=== PATIENT | female | born 1960 | race African-American/Black ===

== ENCOUNTER 2017-11-07 09:25 | Inpatient (IN) | payer OTHER ==
[2017-11-07] MEDS ORDERED: ONDANSETRON 4 MG/2 ML VIAL IVPUSH ONE (10:33)
--- NOTE | 2017-11-07 11:18 | PDOC ---
History of Present Illness <Lamont Del Toro - Last Filed: 11/07/17 16:46> - General History Source: Patient, Spouse Exam Limitations: No Limitations - History of Present Illness Initial Comments: 11/07/17 11:22 The patient is a 57 year old female with a significant PMH of hypertension and end stage renal disease (dialysis on Monday, , or Monday) who presents to the emergency department with headache, fatigue, and 1-2 episodes of emesis during dialysis. The is at bedside and providing most of the history. The notes the patient experiences headaches and fatigue after dialysis for the past three months that resolve on its own about 6 hours later. The patient reports the headaches are severe, throbbing, and localized at the frontal area. The notes the 1-2 episodes of non bloody, non bilious vomit during dialysis today has not occurred before prompting their visit to the ER today. The states the patient was in her normal state of health this morning. At baseline, the patient reports she is constipated for 4-5 days. The reports the patient has been going to [facility] for dialysis for the past 5 years and states the left AV fistula was changed over a year ago. The patient denies LOC, chest pain, shortness of breath, and dizziness. Denies fever, chills, and diarrhea. Denies dysuria, frequency, urgency and hematuria. Allergies: NKA Past surgical history: None reported. Social history: No reported alcohol, drug, or cigarette use. PCP: Dr. Carbajal <Ros Perez - Last Filed: 11/07/17 17:03> - General Chief Complaint: Nausea/Vomiting Stated Complaint: BLOOD PRESSURE ISSUE Time Seen by Provider: 11/07/17 09:51 Past History - Past Medical History COPD: No Dialysis: Yes (,,) HTN: Yes - Suicide/Smoking/Psychosocial Hx Smoking History: Never smoked Have you smoked in the past 12 months: No Information on smoking cessation initiated: No Hx Alcohol Use: No Drug/Substance Use Hx: No Substance Use Type: None Hx Substance Use Treatment: No <Lamont Del Toro - Last Filed: 11/07/17 16:46> <Ros Perez - Last Filed: 11/07/17 17:03> - Past Medical History Allergies/Adverse Reactions: Allergies Allergy/AdvReac Type Severity Reaction Status Date / Time No Known Allergies Allergy Unverified 11/07/17 09:50 Home Medications: Ambulatory Orders Acetaminophen [Pain Relief] 650 mg PO PRN 11/07/17 Clonidine HCl 0.1 mg PO PRN 11/07/17 Nitroglycerin 0.4 mg SL PRN 11/07/17 Review of Systems - Review of Systems Constitutional: No: Chills, Fever HEENTM: No: Recent change in vision Respiratory: No: Cough, Shortness of Breath Cardiac (ROS): Yes: Syncope. No: Chest Pain, Edema ABD/GI: Yes: Nausea. No: Diarrhea, Vomiting Musculoskeletal: No: Muscle Pain Neurological: Yes: Headache. No: Tingling, Weakness All Other Systems: Reviewed and Negative <Lamont Del Toro - Last Filed: 11/07/17 16:46> *Physical Exam - Vital Signs Last Vital Signs Temp Pulse Resp BP Pulse Ox 97.2 F L 65 18 162/75 100 11/07/17 09:25 11/07/17 09:25 11/07/17 09:25 11/07/17 09:25 11/07/17 09:25 <Lamont Del Toro - Last Filed: 11/07/17 16:46> - Vital Signs Last Vital Signs Temp Pulse Resp BP Pulse Ox 97.2 F L 65 18 162/75 100 11/07/17 09:25 11/07/17 09:25 11/07/17 09:25 11/07/17 09:25 11/07/17 09:25 - Physical Exam Comments: 11/07/17 11:24 GENERAL: (+) Fatigued but arousable to answer question. The patient is awake, alert, in no acute distress. HEAD: Normal with no signs of trauma. EYES: Pupils equal, round and reactive to light, extraocular movements intact, sclera anicteric, conjunctiva clear with no pallor. ENT: Ears normal, nares patent, oropharynx clear without exudates. Moist mucous membranes. NECK: Normal range of motion, supple without lymphadenopathy, JVD, or masses. LUNGS: Breath sounds equal, clear to auscultation bilaterally. No wheeze/ crackles. HEART: Regular rate and rhythm, normal S1 and S2 without murmur or rub. ABDOMEN: Soft/nontender/nondistended. BS wnl. No guarding or rebound. No palpable masses. No hepatosplenomegaly. EXTREMITIES: (+) Left AV fistula, palpable thrill. Normal range of motion, no edema. No clubbing or cyanosis. No cords, erythema, or tenderness. NEUROLOGICAL: Cranial nerves II through XII grossly intact. Normal speech, normal gait. PSYCH: Normal mood, normal affect. SKIN: Warm, Dry, normal turgor, no rashes or lesions noted. <Ros Perez - Last Filed: 11/07/17 17:03> Heart Score/ECG Review #1 ECG reviewed & interpreted by me at: 09:49 General ECG Interpretation: Sinus Rhythm, Normal Rate (60), Normal Intervals ( QTC 416), No acute ischemic changes <Lamont Del Toro - Last Filed: 11/07/17 16:46> ED Treatment Course - LABORATORY CBC & Chemistry Diagram: 11/07/17 10:34 11/07/17 10:34 - RADIOLOGY Radiology Studies Ordered: Category Date Time Status HEAD CT (STROKE) [CT] Stat CT Scan 11/07/17 11:11 Ordered CHEST X-RAY PORTABLE* [RAD] Stat Radiology 11/07/17 10:32 Completed <Lamont Del Toro - Last Filed: 11/07/17 16:46> - LABORATORY CBC & Chemistry Diagram: 11/07/17 10:34 11/07/17 10:34 <Ros Perez - Last Filed: 11/07/17 17:03> Medical Decision Making - Medical Decision Making 11/07/17 11:15 A portion of this note was documented by scribe services under my direction. I have reviewed the details of the note, within reason, and agree with the documentation with the following case summary and management plan written by me. 57-year-old female with history of hypertension and end-stage renal disease on Monday//Monday dialysis presents from her routine dialysis with episode of hypotension/near syncope/nausea. Currently without complaints, but somnolent and slightly confused. states this has been typical for patient's post dialysis status for the last few months, but has always been able to complete dialysis and her symptoms would typically resolve spontaneously. No recent infectious complaints or cardiac coronary complaints, she has no pain. Blood pressure here has normalized, O2 sat is normal, she is afebrile. Somnolent but arousable, answers questions appropriately and is following commands but slightly disoriented, A+O 2 no focal deficit, 5/5 x4 extremities, FNF intact 57-year-old female with episode of near syncope/altered mental status while at dialysis. Differential is broad, question electrolyte abnormality versus infectious process versus arrhythmia. Blood pressure has normalized here. Labs EKG, chest x-ray, CT head Continue monitoring, dispo accordingly 11/07/17 12:58 Labs are within normal limits, no leukocytosis. Electrolytes are within normal limits, baseline elevated creatinine, normal troponin. Chest x-ray without acute pathology, CT head pending. 11/07/17 14:24 CT shows large right-sided meningioma with significant mass effect, midline shift, and likely elevated intracranial pressure. Likely the underlying cause of the patient's subacute presentations of confusion/altered mental status, now with persistent symptoms. Discussed with Dr. Salazar of neurosurgery, who will see the patient. Proceed with admisison. Dr. Paredes on service and called. <Lamont Del Toro - Last Filed: 11/07/17 16:46> - Medical Decision Making 11/07/17 17:[address] out [address] to Dr. Paredes. Dr. Stauffer (neurosurgeon) is aware and will be following up in inpatient med surg. <Ros Perez - Last Filed: 11/07/17 17:03> *DC/Admit/Observation/Transfer - Discharge Dispostion Admit: Yes <Lamont Del Toro - Last Filed: 11/07/17 16:46> - Attestations Scribe Attestion: 11/07/17 11:23 Documentation prepared by Ros Perez, acting as medical equipment technician for Lamont Del Toro MD. <Ros Perez - Last Filed: 11/07/17 17:03> Diagnosis at time of Disposition: Near syncope, ESRD (end stage renal disease) on dialysis, Meningioma - Discharge Dispostion Condition at time of disposition: Fair - Referrals Referrals: Anna Carbajal [Primary Care Provider] - - Patient Instructions - Post Discharge Activity
[2017-11-07 11:47] LABS: ALBUMIN 3.7 g/dl (3.4-5.0); ANION GAP 11 (8-16); BILIRUBIN,TOTAL 0.4 mg/dL (0.2-1.0); BLOOD UREA NITROGEN 41 mg/dL (7-18); CALCIUM 8.9 mg/dL (8.5-10.1); CHLORIDE 103 mmol/L (98-107); CO2 21 mmol/L (21-32); GLUCOSE,RANDOM 119 mg/dL (74-106); SGPT/ALT 66 U/L (12-78); SODIUM 135 mmol/L (136-145); TOT PROT 7.8 g/dl (6.4-8.2)
[2017-11-07 11:51] LABS: BASO % 0.2 % (0-2.0); EOS % 1.1 % (0-4.5); HEMATOCRIT 36.7 % (32.4-45.2); HEMOGLOBIN 11.9 GM/dL (10.7-15.3); LYMPH % 13.1 % (8-40); MCH 31.5 pg (25.7-33.7); MCHC 32.5 g/dl (32.0-36.0); MEAN CELL VOLUME 96.9 fl (80-96); MEAN PLT VOLUME 8.7 fl (7.5-11.1); MONO % 3.3 % (3.8-10.2); NEUT % 82.3 % (42.8-82.8); PLATELET COUNT 133 K/MM3 (134-434); RBC 3.78 M/mm3 (3.60-5.2); RDW 13.7 % (11.6-15.6); WHITE BLOOD COUNT 6.8 K/mm3 (4.0-10.0)
[2017-11-07 11:52] LABS: ALK PHOS 243 U/L (45-117)
[2017-11-07 11:58] LABS: POTASSIUM 4.7 mmol/L (3.5-5.1)
[2017-11-07 11:59] LABS: CREATININE 8.5 mg/dL (0.55-1.02); MAGNESIUM 2.4 mg/dL (1.8-2.4); SGOT/AST 70 U/L (15-37)
[2017-11-07 12:05] LABS: INR 0.98 (0.82-1.09); PROTHROMBIN TIME (PATIENT) 11.1 SEC (9.98-11.88)
--- NOTE | 2017-11-07 17:02 | EKG ---
Test Reason : Blood Pressure : / mmHG Vent. Rate : 060 BPM Atrial Rate : 084 BPM P-R Int : 000 ms QRS Dur : 078 ms QT Int : 416 ms P-R-T Axes : 000 -08 011 degrees QTc Int : 416 ms POOR DATA QUALITY, INTERPRETATION MAY BE ADVERSELY AFFECTED SINUS RHYTHM WITH A-V DISSOCIATION AND JUNCTIONAL RHYTHM ABNORMAL ECG WHEN COMPARED WITH ECG OF 28-JUN-2014 15:57, JUNCTIONAL RHYTHM HAS REPLACED SINUS RHYTHM Confirmed by MD Fadi, Reji ([id number]) on 11/07/2017 5:02:27 PM Referred By: Confirmed By:Reji Aponte MD
[2017-11-07] MEDS ORDERED: ACETAMINOPHEN 325 MG TABLET (FP) PO PRN (19:27)
--- NOTE | 2017-11-07 20:58 | HP ---
Admitting History and Physical - Admission History of Present Illness: 57 year old female with a significant PMH of hypertension and end stage renal disease (dialysis on Monday, , or Monday) who presents to the emergency department with headache, fatigue, and 1-2 episodes of emesis during dialysis. The is at bedside and providing most of the history. The notes the patient experiences headaches and fatigue after dialysis for the past three months that resolve on its own about 6 hours later. The patient reports the headaches are severe, throbbing, and localized at the frontal area. The notes the 1-2 episodes of non bloody, non bilious vomit during dialysis today has not occurred before prompting their visit to the ER today. The states the patient was in her normal state of health this morning. At baseline, the patient reports she is constipated for 4-5 days. The reports the patient has been going to [facility] for dialysis for the past 5 years and states the left AV fistula was changed over a year ago. The patient denies LOC, chest pain, shortness of breath, and dizziness. Denies fever, chills, and diarrhea. 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 No: CAD, Hyperlipdemia Pulmonary: No: Asthma, COPD Gastrointestinal: No: Ascites Renal/: Yes: Renal Failure - Past Surgical History Past Surgical History: No: Bypass, CABG - Smoking History Smoking history: Never smoked Have you smoked in the past 12 months: No - Alcohol/Substance Use Hx Alcohol Use: No Home Medications - Allergies Allergies/Adverse Reactions: Allergies Allergy/AdvReac Type Severity Reaction Status Date / Time No Known Allergies Allergy Unverified 11/07/17 09:50 - Home Medications Home Medications: Ambulatory Orders Acetaminophen [Pain Relief] 650 mg PO PRN 11/07/17 Clonidine HCl 0.1 mg PO PRN 11/07/17 Nitroglycerin 0.4 mg SL PRN 11/07/17 Review of Systems - Review of Systems Cardiovascular: denies: Chest Pain Respiratory: denies: SOB, SOB on Exertion Gastrointestinal: denies: Abdominal Pain Neurological: reports: Dizziness, Headache, Weakness Physical Examination Vital Signs: Vital Signs Temperature 97.2 F L 11/07/17 09:25 Pulse Rate 82 11/07/17 19:28 Respiratory Rate 16 11/07/17 19:28 Blood Pressure 150/78 11/07/17 19:28 O2 Sat by Pulse Oximetry (%) 100 11/07/17 13:32 Cardiovascular: Yes: S1, S2 Respiratory: Yes: Regular, CTA Bilaterally Gastrointestinal: Yes: Normal Bowel Sounds, Soft Edema: No Neurological: Yes: Alert, Oriented, Weakness Labs: CBC, BMP 11/07/17 10:34 11/07/17 10:34 Imaging - Results Cat Scan: Report Reviewed Problem List - Problems (1) ESRD (end stage renal disease) on dialysis Assessment/Plan: renal consult Code(s): N18.6 - END STAGE RENAL DISEASE; Z99.2 - DEPENDENCE ON RENAL DIALYSIS (2) Meningioma Assessment/Plan: N/S CONSULT APPRECIATED Code(s): D32.9 - BENIGN NEOPLASM OF MENINGES, UNSPECIFIED (3) Near syncope Assessment/Plan: FOLLOW LABS CARDIO Code(s): R55 - SYNCOPE AND COLLAPSE
[2017-11-07] MEDS: HEPARIN NA (PORCINE) 5,000 UNITS/ML 1ML VIAL SQ SCH ×2 (23:16→23:22)
[2017-11-08 07:31] LABS: BASO % 0.6 % (0-2.0); HEMOGLOBIN 10.9 GM/dL (10.7-15.3); LYMPH % 32.1 % (8-40); MCH 32.2 pg (25.7-33.7); MCHC 33.2 g/dl (32.0-36.0); MONO % 6.3 % (3.8-10.2); PLATELET COUNT 132 K/MM3 (134-434); RBC 3.41 M/mm3 (3.60-5.2); RDW 13.2 % (11.6-15.6); WHITE BLOOD COUNT 5.6 K/mm3 (4.0-10.0)
[2017-11-08 07:55] LABS: ALBUMIN 3.1 g/dl (3.4-5.0); ANION GAP 11 (8-16); BLOOD UREA NITROGEN 54 mg/dL (7-18); CALCIUM 8.3 mg/dL (8.5-10.1); CHLORIDE 105 mmol/L (98-107); CO2 21 mmol/L (21-32); POTASSIUM 5.1 mmol/L (3.5-5.1); SODIUM 137 mmol/L (136-145)
[2017-11-08 08:06] LABS: ALK PHOS 188 U/L (45-117); BILIRUBIN,TOTAL 0.6 mg/dL (0.2-1.0); GLUCOSE,RANDOM 75 mg/dL (74-106); PHOSPHOROUS 5.2 mg/dL (2.5-4.9); SGOT/AST 33 U/L (15-37); SGPT/ALT 47 U/L (12-78); TOT PROT 6.2 g/dl (6.4-8.2)
[2017-11-08 08:31] LABS: CREATININE 10.7 mg/dL (0.55-1.02)
[2017-11-08 08:51] LABS: INR 1.04 (0.82-1.09); PROTHROMBIN TIME (PATIENT) 11.7 SEC (9.98-11.88)
--- NOTE | 2017-11-08 09:22 | CON.CARD ---
Consult Consult Specialty:: Cardiology Reason for Consultation:: PreOp Evaluation - History of Present Illness Chief Complaint: PreOp. No cardiac complaints History of Present Illness: This a [age] year old female with a PMH of HTN, and ESRD on HD. She presents now with eadache, fatigue, and 1-2 episodes of emesis during dialysis. She is a non-smoker. Found to have a menigoma. She has no cardiac symptoms. She specifically denies chest pain, AVALOS, and palpitations. CXR negative EKG reviewed. The ventricular rate is 60 BPM with a poor baseline, possible competing junctional rhythm. 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 No: CAD, Hyperlipdemia Pulmonary: No: Asthma, COPD Gastrointestinal: No: Ascites Renal/: Yes: Renal Failure - Past Surgical History Past Surgical History: No: Bypass, CABG - Alcohol/Substance Use Hx Alcohol Use: No - Smoking History Smoking history: Never smoked Have you smoked in the past 12 months: No Home Medications - Allergies Allergies/Adverse Reactions: Allergies Allergy/AdvReac Type Severity Reaction Status Date / Time No Known Allergies Allergy Unverified 11/07/17 09:50 - Home Medications Home Medications: Ambulatory Orders Acetaminophen [Pain Relief] 650 mg PO PRN 11/07/17 Clonidine HCl 0.1 mg PO PRN 11/07/17 Nitroglycerin 0.4 mg SL PRN 11/07/17 Review of Systems Unable to obtain ROS, reason: As per HPI Vital Signs: Vital Signs Temperature 98.2 F 11/08/17 06:00 Pulse Rate 107 H 11/08/17 06:00 Respiratory Rate 20 11/08/17 06:00 Blood Pressure 142/73 11/08/17 06:00 O2 Sat by Pulse Oximetry (%) 95 11/08/17 01:46 Constitutional: Yes: Well Nourished, No Distress HENT: Yes: WNL Neck: Yes: WNL Respiratory: Yes: CTA Bilaterally Gastrointestinal: Yes: Soft Cardiovascular: Yes: Regular Rate and Rhythm (NL S1S2, No MRHG) JVD: No Extremities: Yes: WNL Edema: No Peripheral Pulses WNL: No Neurological: Yes: Alert, Oriented (Left facial droop suspected) - Other Data Labs, Other Data: CBC, BMP 11/08/17 07:11 11/08/17 07:08 INR, PTT INR 1.04 (0.82-1.09) 11/08/17 07:11 Troponin, BNP 11/07/17 11/07/17 10:34 20:49 Troponin I < 0.02 0.03 Troponin, BNP 11/07/17 11/07/17 10:34 20:49 Troponin I < 0.02 0.03 Assessment/Plan Pre-Operative Evaluation The patient is hemodynamically stable and has no cardiac complaints. The EKG has a poor baseline and P-Waves are difficult to see. The rhythm is regular and could possible represent a competing junction rhythm. This does not represent a contraindication to surgery. Based on my clinical evaluation, there are no cardiac contraindications to surgery.
[2017-11-08] MEDS ORDERED: CHLORHEXIDINE GLUCONATE 4% CLEANSER FOR DECOLONIZATION TP SCH ×2 (09:45→22:00)
--- NOTE | 2017-11-08 10:29 | PN ---
Progress Note, Physician History of Present Illness: awake in bed offers no complaints this am - Current Medication List Current Medications: Active Medications Acetaminophen (Tylenol -) 650 mg PO Q4H PRN PRN Reason: PAIN LEVEL 4 - 6 Chlorhexidine Gluconate (Hibiclens For Decolonization -) 1 applic TP HS [facility] Last Admin: 11/08/17 09:59 Dose: 1 applic Heparin Sodium (Porcine) (Heparin -) 5,000 unit SQ BID [facility] Last Admin: 11/07/17 23:22 Dose: Not Given - Objective Vital Signs: Vital Signs Temperature 98.2 F 11/08/17 06:00 Pulse Rate 107 H 11/08/17 06:00 Respiratory Rate 20 11/08/17 06:00 Blood Pressure 142/73 11/08/17 06:00 O2 Sat by Pulse Oximetry (%) 95 11/08/17 01:46 Cardiovascular: Yes: Regular Rate and Rhythm Respiratory: Yes: Regular, CTA Bilaterally Gastrointestinal: Yes: Normal Bowel Sounds, Soft. No: Tenderness Neurological: Yes: Alert, Oriented Labs: CBC, BMP 11/08/17 07:11 11/08/17 07:08 INR, PTT INR 1.04 (0.82-1.09) 11/08/17 07:11 Problem List - Problems (1) Meningioma Assessment/Plan: N/S CONSULT APPRECIATED NO ABSOLUTE CONTRAINDICATION FOR PROCEDURE CARDIO CONSULT NOTED AND APPRECIATED Code(s): D32.9 - BENIGN NEOPLASM OF MENINGES, UNSPECIFIED (2) ESRD (end stage renal disease) on dialysis Assessment/Plan: renal consult Code(s): N18.6 - END STAGE RENAL DISEASE; Z99.2 - DEPENDENCE ON RENAL DIALYSIS (3) Near syncope Assessment/Plan: MAYBE DUE TO MENINGIOMA AND LOW FLOW STATE FOLLOW LABS NOTED CARDIO NOTED Code(s): R55 - SYNCOPE AND COLLAPSE
[2017-11-08] MEDS ORDERED: MANNITOL 25% 12.5 GM/50 ML VIAL IVPB ONE ×2 (10:45→10:47)
[2017-11-08] MEDS ORDERED: ROCURONIUM BROMIDE 50 MG/5 ML VIAL ONE ×2 (10:45→12:41)
[2017-11-08] MEDS ORDERED: PROPOFOL 20 ML ONE ×2 (10:45)
[2017-11-08] MEDS ORDERED: fentaNYL CITRATE 250 MCG/5 ML VIAL ONE (10:45)
[2017-11-08] MEDS ORDERED: MIDAZOLAM HCL 2 MG/2 ML SINGLE DOSE VIAL ONE (10:45)
[2017-11-08] MEDS ORDERED: GENTAMICIN SO4 80 MG/2 ML VIAL ONE ×2 (10:58→13:21)
[2017-11-08] MEDS ORDERED: LIDOCAINE 1%/EPI 1:100000 (20 ML MULTI DOSE VIAL) ONE ×2 (10:58→11:19)
[2017-11-08] MEDS ORDERED: BUPIVACAINE HCL/PF 0.5% (5MG/ML) 10 ML VIAL ONE (10:59)
[2017-11-08] MEDS ORDERED: ceFAZolin SODIUM 1 GM VIAL ONE (11:13)
[2017-11-08] MEDS ORDERED: THROMBIN (BOVINE) 5,000 UNIT VIAL TP ONE ×2 (11:19→14:19)
[2017-11-08] MEDS ORDERED: ceFAZolin SODIUM 1 GM VIAL IVPB ONE (12:07)
[2017-11-08] MEDS ORDERED: LIDOCAINE 1%/EPI 1:100000 (50 ML MULTI DOSE VIAL) INF ONE (12:22)
[2017-11-08] MEDS ORDERED: DEXAMETHASONE SOD PHOSPHATE 4 MG/1 ML VIAL ONE (12:49)
[2017-11-08] MEDS ORDERED: FUROSEMIDE 40 MG/4 ML INJECTABLE VIAL ONE (12:53)
[2017-11-08] MEDS ORDERED: DESFLURANE GAS 240 ML BOTTLE IH ONE (13:07)
[2017-11-08] MEDS ORDERED: SODIUM CHLORIDE 0.9% P/F 10 ML VIAL IJ ONE (13:23)
[2017-11-08] MEDS ORDERED: GELATIN, ABSORBABLE 100 EACH SPONGE TP ONE (14:20)
[2017-11-08] MEDS ORDERED: GLYCOPYRROLATE 0.2 MG/1 ML VIAL ONE (14:30)
[2017-11-08] MEDS ORDERED: NEOSTIGMINE METHYLSULFATE 0.5 MG/ML - 10 ML MDV ONE (14:30)
--- NOTE | 2017-11-08 14:31 | PN ---
Progress Note (short form) - Note Progress Note: Renal Came to see patient but she is in the OR will follow will plan for dialysis tomorrow as inpatient Thank you Saurabh Lay DO
[2017-11-08] MEDS ORDERED: PHENYLEPHRINE HCL 10 MG/1 ML SINGLE DOSE VIAL ONE (14:33)
[2017-11-08] MEDS ORDERED: ONDANSETRON 4 MG/2 ML VIAL IVPUSH PRN (15:14)
[2017-11-08] MEDS ORDERED: SODIUM CHLORIDE 1,000 ML IV SCH ×2 (15:15)
[2017-11-08] MEDS ORDERED: morphine CARPU-JECT 10 MG/1 ML DISP.SYRIN IVPUSH PRN (15:20)
[2017-11-08] MEDS ORDERED: oxyCODONE HCL 5 MG TABLET PO PRN ×2 (16:07→16:08)
[2017-11-08] MEDS ORDERED: ACETAMINOPHEN 325 MG TABLET (FP) PO PRN ×2 (16:07→16:08)
[2017-11-08] MEDS ORDERED: LABETALOL HCL 5 MG/1 ML (100MG/20 ML VIAL) ONE (16:35)
--- NOTE | 2017-11-08 16:41 | OP ---
Operative Note - Note: Operative Date: 11/08/17 Pre-Operative Diagnosis: right parasagital meningoima Operation: right frontal craniotomy with resection of parasagital meningioma Surgeon: Gaurav Stauffer Carbon Brush Maker: Lesli Barnett Anesthesiologist/FOUNTAIN SERVER: Pilar Adame Anesthesia: General Estimated Blood Loss (mls): 600 Drains, Volume Out (mls): 350 (dhillon) Fluid Volume Replaced (mls): 800 Operative Report Dictated: Yes
--- NOTE | 2017-11-08 16:43 | SURG ---
Surgery Harness Repairer Note Harness Repairer: Lesli Barnett PA-C Date of Service: 11/08/17 Diagnosis: right parasagital meningoima Procedure: right frontal craniotomy with resection of parasagital meningioma I was present for the entirety of the operative procedure. For further detail, please refer to operative report. Visit type - Case Type Case Type: ED Admission - Emergency Emergency Visit: Yes ED Registration Date: 11/07/17 Care time: The patient presented to the Emergency Department on the above date and was hospitalized for further evaluation of their emergent condition. - New patient This patient is new to me today: Yes Date on this admission: 11/08/17
[2017-11-08] MEDS ORDERED: SODIUM CHLORIDE 250 ML IV STA (20:23)
[2017-11-08] MEDS: MUPIROCIN 2% TOPICAL OINTMENT FOR DECOLONIZATION NS SCH (21:19)
--- NOTE | 2017-11-08 21:19 | CONSULT ---
Consult Consult Specialty:: Pulmonary Critical Care Reason for Consultation:: S/p craniotomy with resection of meningioma - History of Present Illness Chief Complaint: Headache, n/v History of Present Illness: Pt is a 57 yo female with h/o HTN and ESRD (HD //mon) who presented to ED c/ p ROBIN/fatigue and n/v during dialysis. As per history pt has been experiencing headaches for the past 3 months. She was 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 and is now s/p R frontal craniotomy with resection of meningioma. Admitted to ICU for post op monitoring. Active Medications Acetaminophen (Tylenol -) 650 mg PO Q4H PRN PRN Reason: PAIN LEVEL 4 - 6 Acetaminophen (Tylenol -) 325 mg PO Q4H PRN PRN Reason: PAIN LEVEL 1-4 Stop: 11/11/17 16:06 Acetaminophen (Tylenol -) 650 mg PO Q4H PRN PRN Reason: PAIN LEVEL 4-8 Stop: 11/11/17 16:07 Chlorhexidine Gluconate (Hibiclens For Decolonization -) 1 applic TP HS [facility] Fentanyl (Sublimaze Injection -) 50 mcg IVPUSH [id number] PRN PRN Reason: PAIN-PACU ORDER X 4 DOSES ONLY Heparin Sodium (Porcine) (Heparin -) 5,000 unit SQ TID [facility] Sodium Chloride (Normal Saline -) 1,000 mls @ 30 mls/hr IV ASDIR ILEANA Cefazolin Sodium 0.5 gm/ (Dextrose) 50 mls @ 100 mls/hr IVPB DAILY [facility] Labetalol HCl (Normodyne Injection -) 10 mg IVPUSH Q1H PRN PRN Reason: systolic control s/p crani Stop: 11/09/17 15:25 Morphine Sulfate (Morphine Injection -) 2 mg IVPUSH Q4H PRN PRN Reason: PAIN LEVEL 8 - 10 Mupirocin (Bactroban Ointment (For Decolonization) -) 1 applic NS BID [facility] Stop: 11/13/17 21:59 Ondansetron HCl (Zofran Injection) 4 mg IVPUSH Q6H PRN PRN Reason: NAUSEA AND/OR VOMITING Oxycodone HCl (Roxicodone -) 5 mg PO Q4H PRN PRN Reason: PAIN LEVEL 1-4 Oxycodone HCl (Roxicodone -) 10 mg PO Q4H PRN PRN Reason: PAIN LEVEL 4-8 - 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 No: CAD, Hyperlipdemia Pulmonary: No: Asthma, COPD Gastrointestinal: No: Ascites Renal/: Yes: Renal Failure - Past Surgical History Past Surgical History: No: Bypass, CABG - Alcohol/Substance Use Hx Alcohol Use: No - Smoking History Smoking history: Never smoked Have you smoked in the past 12 months: No Home Medications - Allergies Allergies/Adverse Reactions: Allergies Allergy/AdvReac Type Severity Reaction Status Date / Time No Known Allergies Allergy Unverified 11/07/17 09:50 - Home Medications Home Medications: Ambulatory Orders Acetaminophen [Pain Relief] 650 mg PO PRN 11/07/17 Clonidine HCl 0.1 mg PO PRN 11/07/17 Nitroglycerin 0.4 mg SL PRN 11/07/17 Physical Exam Vital Signs: Vital Signs Temperature 98.0 F 11/08/17 19:00 Pulse Rate 58 L 11/08/17 19:00 Respiratory Rate 18 11/08/17 19:00 Blood Pressure 120/57 11/08/17 19:00 O2 Sat by Pulse Oximetry (%) 100 11/08/17 18:45 Constitutional: Yes: No Distress Eyes: Yes: WNL HENT: Yes: Other (dressing intact, BEKA drain) Cardiovascular: Yes: WNL Respiratory: Yes: CTA Bilaterally Gastrointestinal: Yes: WNL Musculoskeletal: Yes: WNL Extremities: Yes: WNL Edema: No Wound/Incision: Yes: Dressing Dry and Intact Neurological: Yes: Alert, Oriented ...Motor Strength: WNL Labs: CBC, BMP 11/08/17 07:11 11/08/17 07:08 CBCD WBC 5.6 K/mm3 (4.0-10.0) 11/08/17 07:11 RBC 3.41 M/mm3 (3.60-5.2) L 11/08/17 07:11 Hgb 10.9 GM/dL (10.7-15.3) 11/08/17 07:11 Hct 33.0 % (32.4-45.2) 11/08/17 07:11 MCV 97.0 fl (80-96) H 11/08/17 07:11 MCHC 33.2 g/dl (32.0-36.0) 11/08/17 07:11 RDW 13.2 % (11.6-15.6) 11/08/17 07:11 Plt Count 132 K/MM3 (134-434) L 11/08/17 07:11 MPV 9.0 fl (7.5-11.1) 11/08/17 07:11 CMP Sodium 137 mmol/L (136-145) 11/08/17 07:08 Potassium 5.1 mmol/L (3.5-5.1) 11/08/17 07:08 Chloride 105 mmol/L (98-107) 11/08/17 07:08 Carbon Dioxide 21 mmol/L (21-32) 11/08/17 07:08 Anion Gap 11 (8-16) 11/08/17 07:08 BUN 54 mg/dL (7-18) H 11/08/17 07:08 Creatinine 10.7 mg/dL (0.55-1.02) H* 11/08/17 07:08 Creat Clearance w eGFR 3.68 (>60) 11/08/17 07:08 Calcium 8.3 mg/dL (8.5-10.1) L 11/08/17 07:08 Total Bilirubin 0.6 mg/dL (0.2-1.0) D 11/08/17 07:08 AST 33 U/L (15-37) D 11/08/17 07:08 ALT 47 U/L (12-78) D 11/08/17 07:08 Alkaline Phosphatase 188 U/L (45-117) H D 11/08/17 07:08 Total Protein 6.2 g/dl (6.4-8.2) L D 11/08/17 07:08 Albumin 3.1 g/dl (3.4-5.0) L 11/08/17 07:08 Imaging - Results Cat Scan: Report Reviewed Problem List - Problems (1) ESRD (end stage renal disease) on dialysis Code(s): N18.6 - END STAGE RENAL DISEASE; Z99.2 - DEPENDENCE ON RENAL DIALYSIS (2) Meningioma Code(s): D32.9 - BENIGN NEOPLASM OF MENINGES, UNSPECIFIED Assessment/Plan R parasagital meningioma s/p R frontal craniotomy with resection of meningioma ESRD on HD (//Mon) -neurosurgery following -pain control prn -antiemetics -monitor BEKA drain output -frequent neuro checks -labetalol prn for SBP of 130s -cont Ancef -nephrology following -HD luke -d/c maintenance fluids -VAISHALI Velazquez Critical Care time: 35 min
[2017-11-09] MEDS: LABETALOL HCL 5 MG/1 ML (100MG/20 ML VIAL) IVPUSH PRN ×2 (00:45→02:10)
[2017-11-09] MEDS: ACETAMINOPHEN 325 MG TABLET (FP) PO PRN ×3 (03:22→22:44)
[2017-11-09] MEDS: HEPARIN NA (PORCINE) 5,000 UNITS/ML 1ML VIAL SQ SCH ×3 (05:46→21:40)
[2017-11-09 06:45] LABS: HEMATOCRIT 27.3 % (32.4-45.2); HEMOGLOBIN 9.3 GM/dL (10.7-15.3); MCH 32.8 pg (25.7-33.7); MEAN CELL VOLUME 96.6 fl (80-96); MEAN PLT VOLUME 9.3 fl (7.5-11.1); PLATELET COUNT 151 K/MM3 (134-434); RBC 2.83 M/mm3 (3.60-5.2); RDW 13.5 % (11.6-15.6); WHITE BLOOD COUNT 9.4 K/mm3 (4.0-10.0)
[2017-11-09 07:03] LABS: ANION GAP 14 (8-16); BLOOD UREA NITROGEN 68 mg/dL (7-18); CALCIUM 7.8 mg/dL (8.5-10.1); CHLORIDE 106 mmol/L (98-107); CO2 16 mmol/L (21-32); GLUCOSE,RANDOM 77 mg/dL (74-106); SGOT/AST 29 U/L (15-37); SGPT/ALT 45 U/L (12-78); SODIUM 136 mmol/L (136-145)
[2017-11-09 07:12] LABS: ALK PHOS 163 U/L (45-117); BILIRUBIN,TOTAL 0.4 mg/dL (0.2-1.0); TOT PROT 6.1 g/dl (6.4-8.2)
--- NOTE | 2017-11-09 07:46 | PN ---
Physical Exam: SUBJECTIVE: Patient seen and examined. C/o of dull frontal pain in head s/p craniotomy on meds. Now has hyperkalemia. Given 50% dextrose and 10ui of insulin stat. EKG also appears to show mild tenting of t waves- received Ca gluconate and scheduled for dialysis today. OBJECTIVE: Vital Signs Period Temp Pulse Resp BP Sys/[place] Pulse Ox Last 24 Hr 97.6 F-100.2 F 48-79 8-18 72-154/40-92 99-100 Vital Signs Temp 99.2 F 11/09/17 06:00 Pulse 62 11/09/17 06:00 Resp 16 11/09/17 06:00 BP 130/63 11/09/17 06:00 Pulse Ox 100 11/09/17 06:24 Intake & Output 11/08/17 11/08/17 11/09/17 11:59 23:59 11:59 Intake Total 800 580 200 Output Total 1575 100 Balance 800 -995 100 Weight 63.503 kg 65.884 kg Intake: IV 800 380 none 30 Oral 200 200 Output: Drainage 225 50 Right Head 75 50 Urine 750 50 Dhillon 100 50 Estimated Blood Loss 600 Other: Voiding Method Indwelling Catheter Bowel Movement No Height 1.7 m Body Mass Index (BMI) 21.9 Weight Measurement Method Stated by Patient Built in [facility] GENERAL: The patient is awake, alert, and fully oriented, in no acute distress, sating well on RA. HEAD: wrapped bandage round head with drain from R side of head draining serosanguinous fluid. EYES: Pupils reacting bilaterally ENT: moist mucous membranes on RA. NECK: supple. LUNGS: Vesicular breath sounds bilaterally, no wheezes, no accessory muscle use. HEART: Regular rate and rhythm, S1, S2 ABDOMEN: Soft, nontender, nondistended, normoactive bowel sounds EXTREMITIES: 2+ pulses, warm, well-perfused, no edema. 2 RUE peripheral lines NEUROLOGICAL: Alert and oriented x3. Normal speech, gait not observed. PSYCH: Normal mood, normal affect. Lines: 2 RUE peripheral lines Laboratory Results - last 24 hr 11/08/17 11/08/17 11/08/17 07:08 07:11 07:11 WBC 5.6 RBC 3.41 L Hgb 10.9 Hct 33.0 MCV 97.0 H MCH 32.2 MCHC 33.2 RDW 13.2 Plt Count 132 L MPV 9.0 Neutrophils % 59.0 D Lymphocytes % 32.1 D Monocytes % 6.3 D Eosinophils % 2.0 D Basophils % 0.6 PT with INR 11.70 INR 1.04 Sodium 137 Potassium 5.1 Chloride 105 Carbon Dioxide 21 Anion Gap 11 BUN 54 H Creatinine 10.7 H* Creat Clearance w eGFR 3.68 Random Glucose 75 Calcium 8.3 L Phosphorus 5.2 H Total Bilirubin 0.6 D AST 33 D ALT 47 D Alkaline Phosphatase 188 H D Total Protein 6.2 L D Albumin 3.1 L Blood Type Antibody Screen 11/08/17 11/08/17 11/09/17 09:00 12:12 05:10 WBC 9.4 D RBC 2.83 L Hgb 9.3 L D Hct 27.3 L D MCV 96.6 H MCH 32.8 MCHC 34.0 RDW 13.5 Plt Count 151 MPV 9.3 Neutrophils % Lymphocytes % Monocytes % Eosinophils % Basophils % PT with INR INR Sodium Potassium Chloride Carbon Dioxide Anion Gap BUN Creatinine Creat Clearance w eGFR Random Glucose Calcium Phosphorus Total Bilirubin AST ALT Alkaline Phosphatase Total Protein Albumin Blood Type O POSITIVE O POSITIVE Antibody Screen Negative Active Medications Generic Name Dose Route Start Last Admin Trade Name Freq PRN Reason Stop Dose Admin Acetaminophen 650 mg 11/08/17 15:53 11/09/17 03:22 Tylenol - PO 650 mg Q4H PRN Administration PAIN LEVEL 4 - 6 Acetaminophen 325 mg 11/08/17 16:07 Tylenol - PO 11/11/17 16:06 Q4H PRN PAIN LEVEL 1-4 Acetaminophen 650 mg 11/08/17 16:08 Tylenol - PO 11/11/17 16:07 Q4H PRN PAIN LEVEL 4-8 Chlorhexidine Gluconate 1 applic 11/08/17 22:00 11/08/17 21:23 Hibiclens For Decolonization - TP 1 applic HS ILEANA Administration Fentanyl 50 mcg 11/08/17 15:14 Sublimaze Injection - IVPUSH [id number] PRN PAIN-PACU ORDER X 4 DOSES ONLY Heparin Sodium (Porcine) 5,000 unit 11/09/17 06:00 11/09/17 05:46 Heparin - SQ 5,000 unit TID ILEANA Administration Cefazolin Sodium 0.5 gm/ 50 mls @ 100 mls/hr 11/09/17 12:00 Dextrose IVPB DAILY ILEANA Labetalol HCl 10 mg 11/08/17 15:24 11/09/17 02:10 Normodyne Injection - IVPUSH 11/09/17 15:25 10 mg Q1H PRN Administration systolic control s/p crani Morphine Sulfate 2 mg 11/08/17 15:20 11/09/17 03:23 Morphine Injection - IVPUSH 2 mg Q4H PRN Administration PAIN LEVEL 8 - 10 Mupirocin 1 applic 11/08/17 22:00 11/08/17 21:19 Bactroban Ointment (For Decolonization) - NS 11/13/17 21:59 1 applic BID ILEANA Administration Ondansetron HCl 4 mg 11/08/17 15:14 Zofran Injection IVPUSH Q6H PRN NAUSEA AND/OR VOMITING Oxycodone HCl 5 mg 11/08/17 16:07 Roxicodone - PO Q4H PRN PAIN LEVEL 1-4 Oxycodone HCl 10 mg 11/08/17 16:08 Roxicodone - PO Q4H PRN PAIN LEVEL 4-8 ASSESSMENT/PLAN: 57 yo female with h/o HTN and ESRD (HD t//mon) presented with ROBIN/fatigue and n /v during dialysis, 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 and is now s/p R frontal craniotomy with resection of meningioma Neuro: parasaggital meningioma -POD1- s/p R frontal craniotomy with resection of meningioma Alert and oriented Pain mx- morphine, tylenol Monitor tube drainage Incentive spirometry PT OOB as tolerated No activity restrictions D/C dhillon renal: ESRD- cr-12.2 Hyperkalemia EKG- stat 50% dextrose with 10u insulin stat Ca gluconate 10%@ 1g Dialysis stat_ Nurse discussed with Dr Alireza DAVILA- 2 hours post dialysis (4pm) For floors if stable D/C dhillon Cardio: Hx of HTN S/p craniotomy- stable BP iv Labetalol 10mg GI: Resumed renal diet Tolerating well Oral fluids Pulm: Acute hypoxic respiratory failure- resolved on room air Incentive spirometery PT FEN: Oral fluids -ESRD Replete electrolytes as needed BMP Renal diet DVT: SQ heparin Bilat SCDs Dispo: For transfer to Med surg Visit type - Emergency Visit Emergency Visit: Yes ED Registration Date: 11/07/17 Care time: The patient presented to the Emergency Department on the above date and was hospitalized for further evaluation of their emergent condition. - New Patient This patient is new to me today: Yes Date on this admission: 11/09/17 - Critical Care Critical Care patient: Yes Total Critical Care Time (in minutes): 40 Critical Care Statement: The care of this patient involved high complexity decision making to prevent further life threatening deterioration of the patient 's condition and/or to evaluate & treat vital organ system(s) failure or risk of failure. - Discharge Referral Referred to [facility] Med P.C.: No
--- NOTE | 2017-11-09 08:11 | PN ---
Progress Note (short form) - Note Progress Note: Surgery POD #1 s/p right frontal craniotomy with resection of parasagital meningioma ( pathology confirmed with intraop frozen section) Patient seen and examined at bedside c/o some "heaviness" in her head but denies any headache, blurred vision , N/V, CP or SOB. Stated pain is controlled. Nursing reports stable and comfortable overnight, patient tolerated clears. Vital Signs Temp 99.2 F 11/09/17 06:00 Pulse 60 11/09/17 07:50 Resp 16 11/09/17 07:50 BP 126/57 11/09/17 07:50 Pulse Ox 100 11/09/17 08:07 Intake & Output 11/08/17 11/08/17 11/09/17 11:59 23:59 11:59 Intake Total 800 580 200 Output Total 1575 100 Balance 800 -995 100 Weight 140 lb 145 lb 4 oz Intake: IV 800 380 none 30 Oral 200 200 Output: Drainage 225 50 Right Head 75 50 Urine 750 50 Dhillon 100 50 Estimated Blood Loss 600 Other: Voiding Method Indwelling Catheter Indwelling Catheter Bowel Movement No Height 5 ft 7 in Body Mass Index (BMI) 21.9 Weight Measurement Method Stated by Patient Built in [facility] CBC, BMP 11/09/17 05:10 CBC, BMP 11/09/17 05:10 Microbiology 11/07/17 11:00 Blood - Peripheral Venous Blood Culture - Preliminary NO GROWTH OBTAINED AFTER 24 HOURS, INCUBATION TO CONTINUE FOR 4 DAYS. 11/07/17 10:34 Blood - Peripheral Venous Blood Culture - Preliminary NO GROWTH OBTAINED AFTER 24 HOURS, INCUBATION TO CONTINUE FOR 4 DAYS. PE: A&O x3, NAD unlabored resp on RA Dressing c/d/i with BEKA in place and SS discharge. EOM intact without nystagmus. PERRL CN grossly intact Face symmetric, with normal speech b/l Upper and lower extremities warm and well perfused, b/l hand squeeze 5/5 and 5/5 dorsi/plantar flexion B/L LE compartments soft, supple and non-tender with +2 pedal pulses. Assessment: S/p R Craniotomy with resection of benign paragital meningioma doing well. Plan: 1) d/c neuro B/P control protocol-d/c labetalol PRN 2) OOB with PT as tolerated, no activity restrictions 3) d/c dhillon 4) d/c A-line per anesthesia 5) continue DVT prophylaxis with b/l scds and sq heparin 6) Dialysis today if appropriate 7) recommend step down to floor 8) advance diet as tolerated, Saline lock IV. Evaluation and plan discussed with Dr. Stauffer Problem List - Problems (1) Meningioma Code(s): D32.9 - BENIGN NEOPLASM OF MENINGES, UNSPECIFIED
[2017-11-09 08:23] LABS: CREATININE 12.2 mg/dL (0.55-1.02); POTASSIUM 7.1 mmol/L (3.5-5.1)
[2017-11-09 08:38] LABS: MAGNESIUM 2.3 mg/dL (1.8-2.4)
[2017-11-09 08:40] LABS: PHOSPHOROUS 6.9 mg/dL (2.5-4.9)
[2017-11-09] MEDS ORDERED: INSULIN REGULAR HUMAN 100 UNITS/ML *VIAL ONE (08:58)
[2017-11-09] MEDS ORDERED: DEXTROSE 50%-WATER - 25 GM/50 ML VIAL ONE (08:58)
--- NOTE | 2017-11-09 08:58 | PN ---
Progress Note, Physician - Current Medication List Current Medications: Active Medications Acetaminophen (Tylenol -) 650 mg PO Q4H PRN PRN Reason: PAIN LEVEL 4 - 6 Last Admin: 11/09/17 03:22 Dose: 650 mg Acetaminophen (Tylenol -) 325 mg PO Q4H PRN PRN Reason: PAIN LEVEL 1-4 Stop: 11/11/17 16:06 Acetaminophen (Tylenol -) 650 mg PO Q4H PRN PRN Reason: PAIN LEVEL 4-8 Stop: 11/11/17 16:07 Chlorhexidine Gluconate (Hibiclens For Decolonization -) 1 applic TP HS [facility] Last Admin: 11/08/17 21:23 Dose: 1 applic Fentanyl (Sublimaze Injection -) 50 mcg IVPUSH [id number] PRN PRN Reason: PAIN-PACU ORDER X 4 DOSES ONLY Heparin Sodium (Porcine) (Heparin -) 5,000 unit SQ TID [facility] Last Admin: 11/09/17 05:46 Dose: 5,000 unit Cefazolin Sodium 0.5 gm/ (Dextrose) 50 mls @ 100 mls/hr IVPB DAILY [facility] Morphine Sulfate (Morphine Injection -) 2 mg IVPUSH Q4H PRN PRN Reason: PAIN LEVEL 8 - 10 Last Admin: 11/09/17 03:23 Dose: 2 mg Mupirocin (Bactroban Ointment (For Decolonization) -) 1 applic NS BID [facility] Stop: 11/13/17 21:59 Last Admin: 11/08/17 21:19 Dose: 1 applic Ondansetron HCl (Zofran Injection) 4 mg IVPUSH Q6H PRN PRN Reason: NAUSEA AND/OR VOMITING Oxycodone HCl (Roxicodone -) 5 mg PO Q4H PRN PRN Reason: PAIN LEVEL 1-4 Oxycodone HCl (Roxicodone -) 10 mg PO Q4H PRN PRN Reason: PAIN LEVEL 4-8 - Objective Vital Signs: Vital Signs Temperature 99.2 F 11/09/17 06:00 Pulse Rate 60 11/09/17 07:50 Respiratory Rate 16 11/09/17 07:50 Blood Pressure 126/57 11/09/17 07:50 O2 Sat by Pulse Oximetry (%) 100 11/09/17 08:07 Cardiovascular: Yes: S1, S2 Respiratory: Yes: Regular, CTA Bilaterally Gastrointestinal: Yes: Normal Bowel Sounds, Soft Neurological: Yes: Alert, Oriented, Other (DRESSING INTACT DRAIN WITH BLOOD) Labs: CBC, BMP 11/09/17 05:10 11/09/17 05:10 INR, PTT INR 1.04 (0.82-1.09) 11/08/17 07:11 Problem List - Problems (1) Meningioma Assessment/Plan: N/S CONSULT APPRECIATED NO ABSOLUTE CONTRAINDICATION FOR PROCEDURE CARDIO CONSULT NOTED AND APPRECIATED Operative Date: 11/08/17 Pre-Operative Diagnosis: right parasagital meningoima Operation: right frontal craniotomy with resection of parasagital meningioma Surgeon: Gaurav Stauffer Body Specialist: Lesli Barnett Code(s): D32.9 - BENIGN NEOPLASM OF MENINGES, UNSPECIFIED (2) ESRD (end stage renal disease) on dialysis Assessment/Plan: renal consult noted dialysis today hyperkalemia--dextrose and insulin ekg Code(s): N18.6 - END STAGE RENAL DISEASE; Z99.2 - DEPENDENCE ON RENAL DIALYSIS (3) Near syncope Assessment/Plan: MAYBE DUE TO MENINGIOMA AND LOW FLOW STATE FOLLOW LABS NOTED CARDIO NOTED Code(s): R55 - SYNCOPE AND COLLAPSE
[2017-11-09] MEDS ORDERED: INSULIN REGULAR HUMAN 100 UNITS/ML *VIAL IVPUSH ONE (09:15)
[2017-11-09] MEDS ORDERED: DEXTROSE 50%-WATER 25 GM/50 ML DISP.SYRIN IVPUSH ONE (09:15)
[2017-11-09] MEDS ORDERED: CALCIUM GLUCONATE 10% - 1,000 MG/10 ML VIAL IVPB ONE (09:24)
[2017-11-09] MEDS: MUPIROCIN 2% TOPICAL OINTMENT FOR DECOLONIZATION NS SCH (09:35)
[2017-11-09 10:05] VITALS: BMI 22.7
--- NOTE | 2017-11-09 10:05 | CON.NEP ---
Consult Consult Specialty:: Nephrology Referred by:: Dr. Paredes Reason for Consultation:: ESRD on HD - History of Present Illness Chief Complaint: Headache History of Present Illness: This is a 57 year old woman with PMhx of ESRD on HD (TTS), Hypertension who presented with progressively worsening ROBIN and found to have a menningioma with mass effect. Pt s/p s/p right frontal craniotomy with resection of parasagital meningioma. Pt is awake and alert. Reports some sorness, but no ROBIN. No vision changes. Pt last had dialysis on Monday. Currently on dialysis. K noted to be 7.1 this am. 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 No: CAD, Hyperlipdemia Pulmonary: No: Asthma, COPD Gastrointestinal: No: Ascites Renal/: Yes: Renal Failure ...: No - Past Surgical History Past Surgical History: No: Bypass, CABG - Alcohol/Substance Use Hx Alcohol Use: No - Smoking History Smoking history: Never smoked Have you smoked in the past 12 months: No Home Medications - Allergies Allergies/Adverse Reactions: Allergies Allergy/AdvReac Type Severity Reaction Status Date / Time No Known Allergies Allergy Unverified 11/07/17 09:50 - Home Medications Home Medications: Ambulatory Orders Acetaminophen [Pain Relief] 650 mg PO PRN 11/07/17 Clonidine HCl 0.1 mg PO PRN 11/07/17 Nitroglycerin 0.4 mg SL PRN 11/07/17 Family Disease History - Family Disease History Family History: Unremarkable Review of Systems - Review of Systems Constitutional: reports: No Symptoms Eyes: reports: No Symptoms HENT: reports: No Symptoms Neck: reports: No Symptoms Cardiovascular: reports: No Symptoms Respiratory: reports: No Symptoms Gastrointestinal: reports: No Symptoms Genitourinary: reports: No Symptoms Musculoskeletal: reports: No Symptoms Integumentary: reports: No Symptoms Neurological: reports: No Symptoms Nephrology Consult - Height Height: 5 ft 7 in - Weight Weight: 65.884 kg - BMI Body Mass Index (BMI): 22.7 - Lab Results CBC,BMP: CBC, BMP 11/09/17 05:10 11/09/17 05:10 Anion Gap: Anion Gap Anion Gap 14 (8-16) 11/09/17 05:10 - Imaging Chest X-ray: Report Reviewed - Physical Examination Vital Signs: Vital Signs Temperature 98.5 F 11/09/17 09:45 Pulse Rate 68 11/09/17 09:43 Respiratory Rate 20 11/09/17 09:43 Blood Pressure 134/63 11/09/17 09:43 O2 Sat by Pulse Oximetry (%) 100 11/09/17 08:07 Constitutional: Yes: Well Nourished, No Distress Eyes: Yes: Conjunctiva Clear HENT: Yes: Other (dressing on head.) Neck: Yes: Supple Cardiovascular: Yes: Regular Rate and Rhythm, S1, S2. No: Murmur Respiratory: Yes: Regular, CTA Bilaterally Gastrointestinal: Yes: Normal Bowel Sounds, Soft. No: Tenderness Access for Hemodialysis: AV Fistula Edema: No Wound/Incision: Yes: Dressing Dry and Intact Assessment/Plan 57 year old woman with PMhx of ESRD on HD (TTS), Hypertension who presented with progressively worsening ROBIN and found to have a meningioma with mass effect. #Meningioma s/p resection Meningioma confirmed by path as per Neurosurgery pt doing well surgical follow up ICU monitoring #ESRD on HD for dialysis today, 4 hr treatment with UF of 2L as tolerated Renal diet, fluid restriction of 1.2L daily will maintain on TTS dialysis scheudle dose all meds for intermittent HD #Hypertension Trend BP for now not on antihypertensives #Hyperkalemia s/p insulin and calcium this am expect improvement with dialysis repeat K this evening #CKD Anemia/Post surgical Anemia trend CBC for now no acute indication for transfusion Thank you Will follow Saurabh Lay DO
[2017-11-09] MEDS ORDERED: EPOETIN ALFA 3,000 UNIT/1 ML ML IVPUSH ONE (10:11)
[2017-11-09] MEDS ORDERED: PT OWN MED DRAWER 7, Y5N ONE (11:33)
[2017-11-09] MEDS ORDERED: DISP SYRIN IVPUSH SCH (12:00)
[2017-11-09] MEDS ORDERED: PUSH IVPUSH SCH (12:00)
[2017-11-09] MEDS ORDERED: CEFAZOLIN IVPUSH SCH (12:00)
--- NOTE | 2017-11-09 12:20 | PN ---
Progress Note (short form) - Note Progress Note: Pt day #1 s/p meningioma excision. Doing well, will likely be downgraded to floors today.
--- NOTE | 2017-11-09 12:27 | EKG ---
Test Reason : Blood Pressure : / mmHG Vent. Rate : 075 BPM Atrial Rate : 075 BPM P-R Int : 134 ms QRS Dur : 088 ms QT Int : 386 ms P-R-T Axes : 027 -10 026 degrees QTc Int : 431 ms SINUS RHYTHM WITH MARKED SINUS ARRHYTHMIA MINIMAL VOLTAGE CRITERIA FOR LVH, MAY BE NORMAL VARIANT BORDERLINE ECG WHEN COMPARED WITH ECG OF 09-NOV-2017 05:49, NO SIGNIFICANT CHANGE WAS FOUND Confirmed by STACY ROCHA, RACHAEL ([id number]) on 11/09/2017 12:27:27 PM Referred By: ELIESER SALMON Confirmed By:RACHAEL KUMAR MD
--- NOTE | 2017-11-09 12:30 | PN ---
Teaching Attending Note Name of Resident: Sylvia Griffiths ATTENDING PHYSICIAN STATEMENT I saw and evaluated the patient. I reviewed the resident's note and discussed the case with the resident. I agree with the resident's findings and plan as documented. SUBJECTIVE: Pt seen and examined in the ICU. Urgently dialyzed this AM for hyperkalemia. Some soreness at incisional site, no nausea, vomiting, headaches. Denies shortness of breath or chest pain. OBJECTIVE: Last Vital Signs Temp Pulse Resp BP Pulse Ox 98.5 F 66 18 135/81 100 11/09/17 09:45 11/09/17 10:50 11/09/17 10:50 11/09/17 10:50 11/09/17 09:21 Intake & Output 11/06/17 11/07/17 11/08/17 11/09/17 23:59 23:59 23:59 23:59 Intake Total 1380 200 Output Total 1575 100 Balance -195 100 Weight 63.503 kg 63.503 kg 65.884 kg Gen: NAD at rest Heart: RRR Lung: decreased breath sounds at the bases Abd: soft, nontender Ext: no edema Drain: serosanguinous fluid CBC, BMP 11/09/17 05:10 11/09/17 05:10 Active Medications Acetaminophen (Tylenol -) 650 mg PO Q4H PRN PRN Reason: PAIN LEVEL 4 - 6 Last Admin: 11/09/17 03:22 Dose: 650 mg Acetaminophen (Tylenol -) 325 mg PO Q4H PRN PRN Reason: PAIN LEVEL 1-4 Stop: 11/11/17 16:06 Acetaminophen (Tylenol -) 650 mg PO Q4H PRN PRN Reason: PAIN LEVEL 4-8 Stop: 11/11/17 16:07 Chlorhexidine Gluconate (Hibiclens For Decolonization -) 1 applic TP HS [facility] Last Admin: 11/08/17 21:23 Dose: 1 applic Fentanyl (Sublimaze Injection -) 50 mcg IVPUSH [id number] PRN PRN Reason: PAIN-PACU ORDER X 4 DOSES ONLY Heparin Sodium (Porcine) (Heparin -) 5,000 unit SQ TID [facility] Last Admin: 11/09/17 05:46 Dose: 5,000 unit Cefazolin Sodium (Ancef -) 0.5 gm in 10 mls @ 120 mls/hr IVPUSH DAILY [facility] Morphine Sulfate (Morphine Injection -) 2 mg IVPUSH Q4H PRN PRN Reason: PAIN LEVEL 8 - 10 Last Admin: 11/09/17 03:23 Dose: 2 mg Mupirocin (Bactroban Ointment (For Decolonization) -) 1 applic NS BID [facility] Stop: 11/13/17 21:59 Last Admin: 11/09/17 09:35 Dose: 1 applic Ondansetron HCl (Zofran Injection) 4 mg IVPUSH Q6H PRN PRN Reason: NAUSEA AND/OR VOMITING Oxycodone HCl (Roxicodone -) 5 mg PO Q4H PRN PRN Reason: PAIN LEVEL 1-4 Oxycodone HCl (Roxicodone -) 10 mg PO Q4H PRN PRN Reason: PAIN LEVEL 4-8 ASSESSMENT AND PLAN: R Parasagital Meningioma s/p R Frontal Craniotomy/Meningioma Resection ESRD on HD Hyperkalemia HTN - HD per renal - check labs post HD - pain control - incentive spirometry - monitor drain output - empiric antibiotics - PO as tolerated - mechanical DVT prophylaxis - can transfer to floor if hyperkalemia improved
--- NOTE | 2017-11-09 12:30 | EKG ---
Test Reason : Blood Pressure : / mmHG Vent. Rate : 063 BPM Atrial Rate : 063 BPM P-R Int : 150 ms QRS Dur : 082 ms QT Int : 390 ms P-R-T Axes : 064 -02 035 degrees QTc Int : 399 ms NORMAL SINUS RHYTHM NORMAL ECG WHEN COMPARED WITH ECG OF 07-NOV-2017 09:49, SINUS RHYTHM HAS REPLACED JUNCTIONAL RHYTHM T WAVE AMPLITUDE HAS INCREASED IN ANTERIOR LEADS Confirmed by STACY ROCHA, RACHAEL ([id number]) on 11/09/2017 12:30:18 PM Referred By: Confirmed By:RACHAEL KUMAR MD
[2017-11-09] MEDS ORDERED: NIFEdipine E.R. 30 MG TABLET (FP) PO ONE (15:45)
[2017-11-09 17:58] LABS: ANION GAP 11 (8-16); BLOOD UREA NITROGEN 23 mg/dL (7-18); CALCIUM 8.1 mg/dL (8.5-10.1); CHLORIDE 101 mmol/L (98-107); CO2 30 mmol/L (21-32); CREATININE 5.9 mg/dL (0.55-1.02); GLUCOSE,RANDOM 179 mg/dL (74-106); POTASSIUM 4.1 mmol/L (3.5-5.1); SODIUM 142 mmol/L (136-145)
[2017-11-09] MEDS ORDERED: oxyCODONE HCL 5 MG TABLET PO PRN (19:32)
[2017-11-09] MEDS ORDERED: morphine CARPU-JECT 10 MG/1 ML DISP.SYRIN IVPUSH PRN (19:32)
[2017-11-09] MEDS ORDERED: ONDANSETRON 4 MG/2 ML VIAL IVPUSH PRN (19:32)
[2017-11-09] MEDS ORDERED: ACETAMINOPHEN 325 MG TABLET (FP) PO PRN ×2 (19:32)
[2017-11-09] MEDS: oxyCODONE HCL 5 MG TABLET PO PRN (22:45)
[2017-11-10] MEDS: oxyCODONE HCL 5 MG TABLET PO PRN (05:26)
[2017-11-10] MEDS: ACETAMINOPHEN 325 MG TABLET (FP) PO PRN ×2 (05:27→10:24)
[2017-11-10] MEDS: HEPARIN NA (PORCINE) 5,000 UNITS/ML 1ML VIAL SQ SCH ×3 (05:28→21:57)
[2017-11-10 08:21] LABS: BASO % 0.4 % (0-2.0); EOS % 0.3 % (0-4.5); HEMATOCRIT 23.7 % (32.4-45.2); HEMOGLOBIN 7.8 GM/dL (10.7-15.3); LYMPH % 16.7 % (8-40); MCH 31.8 pg (25.7-33.7); MCHC 33.1 g/dl (32.0-36.0); MEAN CELL VOLUME 96.3 fl (80-96); MEAN PLT VOLUME 8.7 fl (7.5-11.1); MONO % 8.7 % (3.8-10.2); NEUT % 73.9 % (42.8-82.8); PLATELET COUNT 121 K/MM3 (134-434); RBC 2.46 M/mm3 (3.60-5.2); RDW 13.7 % (11.6-15.6); WHITE BLOOD COUNT 7.7 K/mm3 (4.0-10.0)
[2017-11-10 08:40] LABS: ALBUMIN 2.8 g/dl (3.4-5.0); ANION GAP 11 (8-16); BLOOD UREA NITROGEN 29 mg/dL (7-18); CHLORIDE 101 mmol/L (98-107); CO2 29 mmol/L (21-32); GLUCOSE,RANDOM 111 mg/dL (74-106); POTASSIUM 4.2 mmol/L (3.5-5.1); SODIUM 141 mmol/L (136-145)
[2017-11-10 08:53] LABS: ALK PHOS 142 U/L (45-117); BILIRUBIN,TOTAL 0.6 mg/dL (0.2-1.0); CREATININE 7.4 mg/dL (0.55-1.02); PHOSPHOROUS 4.7 mg/dL (2.5-4.9); SGOT/AST 25 U/L (15-37); SGPT/ALT 25 U/L (12-78); TOT PROT 5.7 g/dl (6.4-8.2)
--- NOTE | 2017-11-10 09:04 | PN ---
Progress Note (short form) - Note Progress Note: Patient stable after Right frontal craniotomy for large parasagittal meningioma. Post op CT shows complete resection. Patient is at neurological baseline. BEKA output reducing. Dressing is clean, dry and intact. PLAN -Continue BEKA -Follow exam -check pathology -will discuss discharge plans with Dr. Paredes
--- NOTE | 2017-11-10 09:29 | PATH ---
Surgical Pathology Report Patient Name: ALBERTO ALEX Med. Rec. #: [id number] /Age/Gender: 1960 (Age: 57) / F Account: [id number] Location: [facility] MED/SURG Taken: 11/08/2017 Received: 11/08/2017 Reported: 11/10/2017 Physicians: Gaurav Salazar M.D. Specimen(s) Received A: RIGHT FRONTAL PARASAGITTAL MENINGIOMA B: RIGHT FRONTAL PARASAGITTAL MENINGIOMA Clinical History Parasagittal meningioma Intraoperative Consult Diagnosis Right frontal parasagittal tumor, frozen section: Meningioma. Final Diagnosis A. INTRACRANIAL, FRONTAL PARASAGITTAL, MASS, EXCISION (FS): MENINGIOMA, MENINGOTHELIAL VARIANT, WHO I. B. INTRACRANIAL, FRONTAL PARASAGITTAL, MASS, RESECTION: MENINGIOMA, MENINGOTHELIAL VARIANT, WHO I. Electronically Signed Mirna Toro M.D. Gross Description A. Received fresh labeled "right frontal parasagittal meningioma," is a 2.0 x 1.0 x 0.3 cm aggregate of hubbard-red, focally hemorrhagic soft tissue fragments. Touch/ squash preparation is performed. The specimen is entirely submitted for frozen section. The frozen section residue is entirely submitted in one cassette. B. Received fresh labeled "right frontal parasagittal tumor," is an 8.0 x 5.0 x 1.6 cm hubbard-red, focally hemorrhagic portion of friable soft tissue. After discussing the case with Dr. Salazar, no frozen section is performed. Blueprint Machine Operator sections are submitted in 6 cassettes. /11/08/2017 saudi11/08/2017
[2017-11-10] MEDS ORDERED: CEFAZOLIN IVPUSH SCH (10:00)
[2017-11-10] MEDS ORDERED: DISP SYRIN IVPUSH SCH (10:00)
[2017-11-10] MEDS ORDERED: NIFEdipine E.R. 30 MG TABLET (FP) PO SCH (10:00)
[2017-11-10] MEDS ORDERED: PUSH IVPUSH SCH (10:00)
[2017-11-10] MEDS ORDERED: PT OWN MED DRAWER 7, Y5N ONE (10:20)
[2017-11-10] MEDS: NIFEdipine E.R. 30 MG TABLET (FP) PO SCH (10:24)
--- NOTE | 2017-11-10 12:39 | PN ---
Progress Note, Physician Chief Complaint: s/p right frontal craniotomy and resection of meningioma BEKA drain in place - Current Medication List Current Medications: Active Medications Acetaminophen (Tylenol -) 650 mg PO Q4H PRN PRN Reason: PAIN LEVEL 4 - 6 Last Admin: 11/10/17 10:24 Dose: 650 mg Acetaminophen (Tylenol -) 325 mg PO Q4H PRN PRN Reason: PAIN LEVEL 1-4 Stop: 11/11/17 16:06 Acetaminophen (Tylenol -) 650 mg PO Q4H PRN PRN Reason: PAIN LEVEL 4-8 Stop: 11/11/17 16:07 Heparin Sodium (Porcine) (Heparin -) 5,000 unit SQ TID [facility] Last Admin: 11/10/17 05:28 Dose: 5,000 unit Cefazolin Sodium (Ancef -) 0.5 gm in 10 mls @ 120 mls/hr IVPUSH DAILY [facility] Last Admin: 11/10/17 10:24 Dose: 120 mls/hr Morphine Sulfate (Morphine Injection -) 2 mg IVPUSH Q4H PRN PRN Reason: PAIN LEVEL 8 - 10 Nifedipine (Procardia Xl -) 30 mg PO DAILY [facility] Last Admin: 11/10/17 10:24 Dose: 30 mg Oxycodone HCl (Roxicodone -) 5 mg PO Q4H PRN PRN Reason: PAIN LEVEL 1-4 Oxycodone HCl (Roxicodone -) 10 mg PO Q4H PRN PRN Reason: PAIN LEVEL 4-8 Last Admin: 11/10/17 05:26 Dose: 10 mg - Objective Vital Signs: Vital Signs Temperature 99.5 F 11/10/17 06:00 Pulse Rate 72 11/10/17 06:00 Respiratory Rate 18 11/10/17 06:00 Blood Pressure 144/76 11/10/17 06:00 O2 Sat by Pulse Oximetry (%) 100 11/09/17 20:16 Constitutional: Yes: Calm HENT: Yes: Other (BEKA drain- serosanginous fluid periorbital swelling of the right eye) Cardiovascular: Yes: Regular Rate and Rhythm, S1, S2 Respiratory: Yes: CTA Bilaterally Gastrointestinal: Yes: Normal Bowel Sounds, Soft Extremities: Yes: Other (scd) Edema: No Labs: CBC, BMP 11/10/17 07:20 11/10/17 07:20 INR, PTT INR 1.04 (0.82-1.09) 11/08/17 07:11 Problem List - Problems (1) ESRD (end stage renal disease) on dialysis Assessment/Plan: HD per renal got HD yesterday for hyperkalemia POtassium improved got procrit during HD yesterday Code(s): N18.6 - END STAGE RENAL DISEASE; Z99.2 - DEPENDENCE ON RENAL DIALYSIS (2) Meningioma Assessment/Plan: s/p craniotomy and resection of meningioma MAITE on board continue BEKA drain pathology report shows menigioma pain control DVT ppx Code(s): D32.9 - BENIGN NEOPLASM OF MENINGES, UNSPECIFIED
[2017-11-10 13:15] LABS: BASO % 0.5 % (0-2.0); EOS % 0.7 % (0-4.5); HEMATOCRIT 30.1 % (32.4-45.2); LYMPH % 17.5 % (8-40); MCHC 33.1 g/dl (32.0-36.0); MEAN CELL VOLUME 96.4 fl (80-96); MEAN PLT VOLUME 8.6 fl (7.5-11.1); MONO % 8.2 % (3.8-10.2); NEUT % 73.1 % (42.8-82.8); PLATELET COUNT 144 K/MM3 (134-434); RBC 3.12 M/mm3 (3.60-5.2); WHITE BLOOD COUNT 9.1 K/mm3 (4.0-10.0)
--- NOTE | 2017-11-10 15:59 | PN ---
Progress Note (short form) - Note Progress Note: Renal follow up for ESRD on HD Pt seen and examined at the bedside sitting up in a chair no acute complaints s/p dialysis yesterday Vital Signs Temperature 97.3 F L 11/10/17 15:45 Pulse Rate 75 11/10/17 15:45 Respiratory Rate 18 11/10/17 15:45 Blood Pressure 131/74 11/10/17 15:45 O2 Sat by Pulse Oximetry (%) 100 11/09/17 20:16 Intake & Output 11/07/17 11/08/17 11/09/17 11/10/17 23:59 23:59 23:59 23:59 Intake Total 1380 700 580 Output Total 1575 200 30 Balance -195 500 550 Weight 63.503 kg 63.503 kg 65.884 kg NAD Dressing on skull, clear and intact no LE edema CBC, BMP 11/10/17 13:10 11/10/17 07:20 Current Medications Acetaminophen (Tylenol -) 650 mg PO Q4H PRN PRN Reason: PAIN LEVEL 4 - 6 Last Admin: 11/10/17 10:24 Dose: 650 mg Acetaminophen (Tylenol -) 325 mg PO Q4H PRN PRN Reason: PAIN LEVEL 1-4 Stop: 11/11/17 16:06 Acetaminophen (Tylenol -) 650 mg PO Q4H PRN PRN Reason: PAIN LEVEL 4-8 Stop: 11/11/17 16:07 Heparin Sodium (Porcine) (Heparin -) 5,000 unit SQ TID [facility] Last Admin: 11/10/17 14:42 Dose: 5,000 unit Morphine Sulfate (Morphine Injection -) 2 mg IVPUSH Q4H PRN PRN Reason: PAIN LEVEL 8 - 10 Nifedipine (Procardia Xl -) 30 mg PO DAILY [facility] Last Admin: 11/10/17 10:24 Dose: 30 mg Oxycodone HCl (Roxicodone -) 5 mg PO Q4H PRN PRN Reason: PAIN LEVEL 1-4 Oxycodone HCl (Roxicodone -) 10 mg PO Q4H PRN PRN Reason: PAIN LEVEL 4-8 Last Admin: 11/10/17 05:26 Dose: 10 mg 57 year old woman with PMhx of ESRD on HD (TTS), Hypertension who presented with progressively worsening ROBIN and found to have a meningioma with mass effect. #Meningioma s/p resection doing well CT showed complete resection pain control #ESRD on HD for dialysis tomorrow in AM #Hypertension BP at goal on Nifedpine #CKD Anemia/Post surgical Anemia trend CBC Saurabh Lay DO
--- NOTE | 2017-11-10 16:34 | PN ---
Progress Note (short form) - Note Progress Note: Surgery POD #2 s/p right frontal craniotomy with resection of parasagital meningioma. Patient seen and examined at bedside c/o some "fullness" in her head but denies any headache, blurred vision, N/V, CP or SOB. She has been ambulating with PT and voiding spontaneously but has not yet had a BM. Stated pain is controlled and she is tolerating a renal diet. Vital Signs Temp 97.3 F L 11/10/17 15:45 Pulse 75 11/10/17 15:45 Resp 18 11/10/17 15:45 BP 131/74 11/10/17 15:45 Pulse Ox 100 11/09/17 20:16 Intake & Output 11/09/17 11/10/17 11/10/17 23:59 11:59 23:59 Intake Total 500 300 280 Output Total 100 30 Balance 400 270 280 Intake: IVPB 200 Oral 300 300 280 Output: Drainage 50 30 Right Head 50 30 Urine 50 Ibarra 50 Other: Voiding Method Bedpan Diaper Toilet Bowel Movement No # Bowel Movements 0 CBC, BMP 11/10/17 13:10 11/10/17 07:20 PE: A&O x3, NAD unlabored resp on RA incision c/d/i with no d/c no erythema or edema in surrounding tissue BEKA with SS d/c 25cc removed with tip fully intact, dermabond placed on wound and drain site redressed with Xeroform and dry dressing. EOM intact without nystagmus. PERRL CN grossly intact Face symmetric, with superficial edema surrounding right eye appropriate to status. normal speech b/l Upper and lower extremities warm and well perfused, b/l hand squeeze 5/5 and 5/5 dorsi/plantar flexion Assessment: S/p R Craniotomy with resection of benign paragital meningioma doing well. Plan: 1) dialysis tomorrow as scheduled 2) OOB with PT as tolerated, no activity restrictions, Rolling Walker 3) discharge planning for tomorrow if medically stable 4) VNS for wound care- xeroform, 4x4 and curlex 5) continue DVT prophylaxis with b/l scds and sq heparin 6) keep incision clean and dry until janes removed by Dr Stauffer in office. Evaluation and plan discussed with Dr. Choudhri Problem List - Problems (1) Meningioma Code(s): D32.9 - BENIGN NEOPLASM OF MENINGES, UNSPECIFIED
[2017-11-11] MEDS: HEPARIN NA (PORCINE) 5,000 UNITS/ML 1ML VIAL SQ SCH ×3 (06:14→21:30)
[2017-11-11 09:13] LABS: CHLORIDE 103 mmol/L (98-107); POTASSIUM 4.5 mmol/L (3.5-5.1); SODIUM 138 mmol/L (136-145)
[2017-11-11 09:30] LABS: ANION GAP 8 (8-16); BLOOD UREA NITROGEN 48 mg/dL (7-18); CALCIUM 7.6 mg/dL (8.5-10.1); CO2 27 mmol/L (21-32); GLUCOSE,RANDOM 111 mg/dL (74-106)
[2017-11-11 11:10] LABS: CREATININE 10.2 mg/dL (0.55-1.02)
[2017-11-11 11:44] LABS: BASO % 0.2 % (0-2.0); EOS % 1.6 % (0-4.5); HEMOGLOBIN 9.1 GM/dL (10.7-15.3); LYMPH % 23.9 % (8-40); MCH 32.1 pg (25.7-33.7); MCHC 33.6 g/dl (32.0-36.0); MEAN CELL VOLUME 95.5 fl (80-96); MEAN PLT VOLUME 8.1 fl (7.5-11.1); MONO % 7.1 % (3.8-10.2); NEUT % 67.2 % (42.8-82.8); PLATELET COUNT 156 K/MM3 (134-434); RBC 2.83 M/mm3 (3.60-5.2); RDW 13.9 % (11.6-15.6); WHITE BLOOD COUNT 10.6 K/mm3 (4.0-10.0)
--- NOTE | 2017-11-11 11:47 | RAPID ---
Physical Examination Findings/Remarks: Rapid response was called in [address] [place] [address] Dialysis center. Rapid response team reached there immediately. On arrival, patient was somnolent and unresponsive. As per nurse and family, while on dialysis, patient suddenly loss consciousness and was not responsive while talking to her . Per family and documentation, patient has a history of feeling fatigued and tired while on dialysis but nothing like this happened before. Patient slowly regained consciousness and denied headache, chest pain, dizziness and SOB. BP 178/98 02 Sat 98% Pulse 85 RR: 16 Fingerstick: 193 Patient Somnolent at first but slowly regained consciousness and was able to answer questions and follow commands. Neuro: PERRL, symmetric face, no facial droop CV: RRR, no murmurs appreciated Lungs: CTA b/l Stat orders: CBC, Mag, Phos ordered Head CT without contrast EKG Hold Sedatives and pain meds Neuro checks q3 Vital signs q4 Med-surge Plan discussed with primary team. [facility] will FU labs and CT scan. Labs: CBC, BMP 11/11/17 08:15
[2017-11-11 12:06] LABS: MAGNESIUM 1.9 mg/dL (1.8-2.4); PHOSPHOROUS 1.9 mg/dL (2.5-4.9)
[2017-11-11] MEDS: NIFEdipine E.R. 30 MG TABLET (FP) PO SCH (12:46)
--- NOTE | 2017-11-11 15:18 | EKG ---
Test Reason : Blood Pressure : / mmHG Vent. Rate : 073 BPM Atrial Rate : 073 BPM P-R Int : 132 ms QRS Dur : 084 ms QT Int : 414 ms P-R-T Axes : 044 -06 028 degrees QTc Int : 456 ms NORMAL SINUS RHYTHM MODERATE VOLTAGE CRITERIA FOR LVH, MAY BE NORMAL VARIANT BORDERLINE ECG WHEN COMPARED WITH ECG OF 09-NOV-2017 09:05, NONSPECIFIC T WAVE ABNORMALITY NOW EVIDENT IN ANTERIOR LEADS Confirmed by Tarik De La Rosa ([id number]) on 11/11/2017 3:18:11 PM Referred By: Keven BARRIOS Confirmed By:Tarik De La Rosa
--- NOTE | 2017-11-11 17:37 | PN ---
Progress Note, Physician Chief Complaint: Craniotomy History of Present Illness: nAD, in bed, and son at bedside - Current Medication List Current Medications: Active Medications Acetaminophen (Tylenol -) 650 mg PO Q4H PRN PRN Reason: PAIN LEVEL 4 - 6 Last Admin: 11/10/17 10:24 Dose: 650 mg Heparin Sodium (Porcine) (Heparin -) 5,000 unit SQ TID [facility] Last Admin: 11/11/17 16:09 Dose: 5,000 unit Nifedipine (Procardia Xl -) 30 mg PO DAILY [facility] Last Admin: 11/11/17 12:46 Dose: Not Given - Objective Vital Signs: Vital Signs Temperature 99.3 F 11/11/17 15:31 Pulse Rate 79 11/11/17 15:31 Respiratory Rate 18 11/11/17 15:31 Blood Pressure 135/67 11/11/17 15:31 O2 Sat by Pulse Oximetry (%) 99 11/10/17 21:00 Constitutional: Yes: Well Nourished, No Distress, Calm Cardiovascular: Yes: Regular Rate and Rhythm Respiratory: Yes: Regular Neurological: Yes: Alert, Oriented Psychiatric: Yes: Alert, Oriented Labs: CBC, BMP 11/11/17 11:30 11/11/17 08:15 INR, PTT INR 1.04 (0.82-1.09) 11/08/17 07:11 Problem List - Problems (1) S/P craniotomy Assessment/Plan: -seen by Neurosurgery -repeat CT head official report pending Code(s): Z98.890 - OTHER SPECIFIED POSTPROCEDURAL STATES (2) ESRD (end stage renal disease) on dialysis Assessment/Plan: -had dialysis yesterday Code(s): N18.6 - END STAGE RENAL DISEASE; Z99.2 - DEPENDENCE ON RENAL DIALYSIS (3) Meningioma Code(s): D32.9 - BENIGN NEOPLASM OF MENINGES, UNSPECIFIED (4) Near syncope Assessment/Plan: -awaiting repeat CT head report -re-evaluation by neurosurgery Code(s): R55 - SYNCOPE AND COLLAPSE Assessment/Plan see problem list
--- NOTE | 2017-11-11 19:50 | PN ---
Progress Note (short form) - Note Progress Note: esrd s/p acute ams after dialysis bp and blood glu ok s/p craniotomy htn w/u for yap yielded large meningioma with mass effect Current Medications Acetaminophen (Tylenol -) 650 mg PO Q4H PRN PRN Reason: PAIN LEVEL 4 - 6 Last Admin: 11/10/17 10:24 Dose: 650 mg Heparin Sodium (Porcine) (Heparin -) 5,000 unit SQ TID [facility] Last Admin: 11/11/17 16:09 Dose: 5,000 unit Nifedipine (Procardia Xl -) 30 mg PO DAILY [facility] Last Admin: 11/11/17 12:46 Dose: Not Given Last Vital Signs Temp Pulse Resp BP Pulse Ox 98.9 F 94 H 20 142/80 99 11/11/17 18:30 11/11/17 18:30 11/11/17 18:30 11/11/17 18:30 11/10/17 21:00 CBC, BMP 11/11/17 11:30 11/11/17 08:15 IMP- AMS not related to esrd or dialysis procedure f/u neurology in case this is related to postop after craniotomy
[2017-11-12] MEDS: HEPARIN NA (PORCINE) 5,000 UNITS/ML 1ML VIAL SQ SCH ×3 (05:19→21:05)
[2017-11-12 06:36] LABS: HBSAG SCREEN Negative (Negative); HEP A AB, IGM Negative (Negative); HEP B CORE AB, TOT Negative (Negative)
[2017-11-12] MEDS: NIFEdipine E.R. 30 MG TABLET (FP) PO SCH (09:08)
--- NOTE | 2017-11-12 19:07 | PN ---
Progress Note, Physician History of Present Illness: awake in bed offers no complaints at this time - Current Medication List Current Medications: Active Medications Acetaminophen (Tylenol -) 650 mg PO Q4H PRN PRN Reason: PAIN LEVEL 4 - 6 Last Admin: 11/10/17 10:24 Dose: 650 mg Heparin Sodium (Porcine) (Heparin -) 5,000 unit SQ TID [facility] Last Admin: 11/12/17 14:11 Dose: 5,000 unit Nifedipine (Procardia Xl -) 30 mg PO DAILY [facility] Last Admin: 11/12/17 09:08 Dose: 30 mg - Objective Vital Signs: Vital Signs Temperature 99 F 11/12/17 17:18 Pulse Rate 91 H 11/12/17 17:18 Respiratory Rate 20 11/12/17 17:18 Blood Pressure 143/70 11/12/17 17:18 O2 Sat by Pulse Oximetry (%) 95 11/12/17 06:00 Cardiovascular: Yes: S1, S2 Respiratory: Yes: Regular, CTA Bilaterally Gastrointestinal: Yes: Normal Bowel Sounds, Soft Edema: Yes (left facial) Labs: CBC, BMP 11/11/17 11:30 11/11/17 08:15 INR, PTT INR 1.04 (0.82-1.09) 11/08/17 07:11 Problem List - Problems (1) Meningioma Assessment/Plan: N/S CONSULT APPRECIATED CARDIO CONSULT NOTED AND APPRECIATED Operative Date: 11/08/17 Pre-Operative Diagnosis: right parasagital meningoima Operation: right frontal craniotomy with resection of parasagital meningioma Surgeon: Gaurav Olsen Oral And Maxillofacial Surgeon: Lesli Barnett CT OF HEAD NOTED--D/W DR OLSEN START PT Code(s): D32.9 - BENIGN NEOPLASM OF MENINGES, UNSPECIFIED (2) ESRD (end stage renal disease) on dialysis Assessment/Plan: renal consult noted dialysis today hyperkalemia--dextrose and insulin ekg Code(s): N18.6 - END STAGE RENAL DISEASE; Z99.2 - DEPENDENCE ON RENAL DIALYSIS (3) Near syncope Assessment/Plan: CT NOTED FOLLOW LABS NOTED CARDIO NOTED Code(s): R55 - SYNCOPE AND COLLAPSE
--- NOTE | 2017-11-12 19:50 | PN ---
Progress Note (short form) - Note Progress Note: esrd s/p acute ams after dialysis bp and blood glu ok s/p craniotomy htn w/u for yap yielded large meningioma with mass effect more responsive today Current Medications Acetaminophen (Tylenol -) 650 mg PO Q4H PRN PRN Reason: PAIN LEVEL 4 - 6 Last Admin: 11/12/17 21:04 Dose: 650 mg Acetaminophen (Tylenol -) 650 mg PO Q6H PRN PRN Reason: FEVER >99.5 Heparin Sodium (Porcine) (Heparin -) 5,000 unit SQ TID [facility] Last Admin: 11/12/17 21:05 Dose: 5,000 unit Nifedipine (Procardia Xl -) 30 mg PO DAILY [facility] Last Admin: 11/12/17 09:08 Dose: 30 mg Last Vital Signs Temp Pulse Resp BP Pulse Ox 99 F 91 H 20 143/70 95 11/12/17 17:18 11/12/17 17:18 11/12/17 17:18 11/12/17 17:18 11/12/17 06:00 lungs clear heart reg abd soft nontender CBC, BMP 11/11/17 11:30 11/11/17 08:15 11/10/17 11/11/17 11/11/17 07:20 08:15 11:30 Calcium 7.6 L Phosphorus 1.9 L Magnesium 1.9 Albumin 2.8 L IMP- acute AMS not related to esrd or dialysis procedure s/p craniotomy ESRD would still recommend f/u neurology in case this is related to postop after craniotomy
[2017-11-12] MEDS ORDERED: ACETAMINOPHEN 325 MG TABLET (FP) PO PRN (20:15)
[2017-11-12] MEDS: ACETAMINOPHEN 325 MG TABLET (FP) PO PRN (21:04)
[2017-11-12 21:35] LABS: BASO % 0.4 % (0-2.0); EOS % 3.8 % (0-4.5); HEMATOCRIT 23.6 % (32.4-45.2); HEMOGLOBIN 7.9 GM/dL (10.7-15.3); LYMPH % 18.3 % (8-40); MCH 32.4 pg (25.7-33.7); MCHC 33.6 g/dl (32.0-36.0); MEAN CELL VOLUME 96.4 fl (80-96); MEAN PLT VOLUME 8.5 fl (7.5-11.1); MONO % 8.1 % (3.8-10.2); NEUT % 69.4 % (42.8-82.8); PLATELET COUNT 184 K/MM3 (134-434); RBC 2.44 M/mm3 (3.60-5.2); RDW 13.7 % (11.6-15.6); WHITE BLOOD COUNT 8.3 K/mm3 (4.0-10.0)
[2017-11-13] MEDS: HEPARIN NA (PORCINE) 5,000 UNITS/ML 1ML VIAL SQ SCH ×2 (05:58→14:09)
[2017-11-13 07:33] LABS: BASO % 1.4 % (0-2.0); EOS % 3.5 % (0-4.5); HEMATOCRIT 25.1 % (32.4-45.2); HEMOGLOBIN 8.3 GM/dL (10.7-15.3); LYMPH % 20.2 % (8-40); MCH 32.3 pg (25.7-33.7); MCHC 33.1 g/dl (32.0-36.0); MEAN CELL VOLUME 97.4 fl (80-96); MEAN PLT VOLUME 8.3 fl (7.5-11.1); MONO % 6.6 % (3.8-10.2); NEUT % 68.3 % (42.8-82.8); PLATELET COUNT 188 K/MM3 (134-434); RBC 2.58 M/mm3 (3.60-5.2); RDW 13.9 % (11.6-15.6); WHITE BLOOD COUNT 8.4 K/mm3 (4.0-10.0)
[2017-11-13] MEDS: NIFEdipine E.R. 30 MG TABLET (FP) PO SCH (10:30)
--- NOTE | 2017-11-13 11:21 | PN ---
Progress Note, Physician History of Present Illness: awake in bed offers no complaints at this time - Current Medication List Current Medications: Active Medications Acetaminophen (Tylenol -) 650 mg PO Q4H PRN PRN Reason: PAIN LEVEL 4 - 6 Last Admin: 11/12/17 21:04 Dose: 650 mg Acetaminophen (Tylenol -) 650 mg PO Q6H PRN PRN Reason: FEVER >99.5 Heparin Sodium (Porcine) (Heparin -) 5,000 unit SQ TID [facility] Last Admin: 11/13/17 05:58 Dose: 5,000 unit Nifedipine (Procardia Xl -) 30 mg PO DAILY [facility] Last Admin: 11/13/17 10:30 Dose: 30 mg - Objective Vital Signs: Vital Signs Temperature 98.4 F 11/13/17 08:08 Pulse Rate 71 11/13/17 08:08 Respiratory Rate 18 11/13/17 08:08 Blood Pressure 143/79 11/13/17 08:08 O2 Sat by Pulse Oximetry (%) 96 11/13/17 06:00 Cardiovascular: Yes: Regular Rate and Rhythm Respiratory: Yes: Regular, CTA Bilaterally Gastrointestinal: Yes: Normal Bowel Sounds, Soft Labs: CBC, BMP 11/13/17 06:30 11/11/17 08:15 INR, PTT INR 1.04 (0.82-1.09) 11/08/17 07:11 Problem List - Problems (1) Meningioma Assessment/Plan: N/S CONSULT APPRECIATED CARDIO CONSULT NOTED AND APPRECIATED Operative Date: 11/08/17 Pre-Operative Diagnosis: right parasagital meningoima Operation: right frontal craniotomy with resection of parasagital meningioma Surgeon: Gaurav Olsen Insurance Licensing Supervisor: Lesli Barnett CT OF HEAD NOTED--D/W DR OLSEN START PT Code(s): D32.9 - BENIGN NEOPLASM OF MENINGES, UNSPECIFIED (2) ESRD (end stage renal disease) on dialysis Assessment/Plan: renal consult noted dialysis today hyperkalemia--dextrose and insulin ekg Code(s): N18.6 - END STAGE RENAL DISEASE; Z99.2 - DEPENDENCE ON RENAL DIALYSIS (3) Near syncope Assessment/Plan: CT NOTED FOLLOW LABS NOTED CARDIO NOTED Code(s): R55 - SYNCOPE AND COLLAPSE
--- NOTE | 2017-11-13 13:08 | PN ---
Progress Note (short form) - Note Progress Note: Pt seen today, sitting upright in chair and at her bedside. No complaints of nausea or headache. Over the weekend she had episode of LOC while on HD with a rapid response. Vital Signs Period Temp Pulse Resp BP Sys/[place] Pulse Ox Last 24 Hr 97.7 F-99.2 F 70-91 18-20 136-143/66-79 96-99 GEN: alert, oob to chair. somewhat lethargic but responsive Head dressing c/d/i LE: 5/5 b/l plantar flexion 4/5 dorsi flexion CBC, BMP 11/13/17 06:30 11/11/17 08:15 A/P: 57 yo female s/p right frontal craniotomy with resection of parasagital meningioma S/w Dr. Stauffer and recommends neurology consult. Pt with episode of LOC and recommends to r/o seizure disorder. D/w Dr. Paredes and will place neurology consult Plan for HD tomorrow or regular day T,TH, sat Continue Physical therapy
--- NOTE | 2017-11-13 13:43 | CONS ---
DATE OF CONSULTATION: 11/13/2017 PHYSICAL MEDICINE REHABILITATION HISTORY OF PRESENT ILLNESS: The patient is a 57-year-old woman with past medical history of hypertension end-stage renal disease on hemodialysis who was admitted to [facility] with headache and emesis on November 07, 2017. CT of the head and MRI of the brain demonstrated an 8 x 5 x 4.5 cm right frontal lesion probably meningioma. Patient was cleared, taken to the operating room on November 08 undergoing a right frontal craniotomy and resection of a parasagittal meningioma performed by Dr. Gillette. Patient's blood work did show some acute blood loss anemia on November 10 with a hemoglobin 7.9, and on November 11, WBCs were slightly elevated at 10.6. Patient was noted to have altered mental status and underwent CT of the head. Which showed increasing mass effect secondary to edema with the edema being 1 cm which was previously 0.5. Blood work on November 12 showed improvement of WBCs to 8.3, hemoglobin 7.9, slightly decreased. Patient was seen by Physical Therapy. A repeat blood work on November 13 showed WBCs 8.4, hemoglobin stable 8.3, platelet count 188, and chemistry is pending after dialysis. Patient was seen by Physical Therapy on November 10, able to march in place 10 steps, mod assist for transfers. PAST MEDICAL HISTORY/PAST SURGICAL HISTORY: As above. SOCIAL HISTORY: Lives in an apartment with an elevator with her . Premobidly, she states she was completely independent, ambulatory without assistive device. No tobacco. No alcohol. REVIEW OF SYSTEMS: She has a little bit of a headache in the forehead but no complaints of lightheadedness, dizziness, no blurry vision, double vision. No nausea or vomiting, difficulty swallowing, possibly some mild difficulty chewing. No significant neck pain. No complaints of numbness, tingling in the upper extremities. No complaints of numbness or tingling in the lower extremities. No complaints of any weakness, chest pain, shortness of breath, fever, chills, bowel, bladder, incontinence, or retention. PHYSICAL EXAMINATION: General: On examination, patient is seen lying in bed. She has a bandage over her head, but otherwise no acute distress. HEENT: She has no obvious facial weakness. Her extraocular muscles appear intact. Neck: Supple. Extremities: Without any pitting edema or calf tenderness. She does have an AV fistula in the left upper extremity with some surrounding soft tissue swelling. Skin: Again, an AV fistula. Unable to examine her craniotomy scar. Neuromuscular: Awake, alert. She is oriented x3. She seems to have fairly good insight into her medical conditions. Cranial nerves II through XII grossly intact. She has good strength and range in her upper extremities with good [id number]. Perhaps some mild left proximal weakness in the left shoulder but at least 3+/5 to 4/5. Her right distal lower extremity, however, has quite a bit of weakness. She seems to have a footdrop and difficulty extending the knee against gravity. Her hip and thigh has 1/5 to 2/5 strength. In the left lower extremity, she has antigravity strength in the hip, girdle a 3/5, knee extensors 3+/5 with a good dorsiflexion and plantarflexion, and normal sensation to pinprick except for possibly decrease in the distal right lower extremity. Unable to stand or ambulate at this time. OVERALL IMPRESSION: 1. Deficits in mobility and activities of daily living. 2. Status post craniotomy, resection of right frontal meningioma with some left proximal upper limb and lower limb weakness which may be related. 3. Distal right lower extremity weakness which does not seem to be related to the original surgery, uncertain etiology, rule out mass effect from edema. 4. Status post altered mental status which is doing well. 5. End-stage renal disease on hemodialysis. 6. Acute blood loss anemia. 7. Hypoalbuminemia with an albumin of 2.8. 8. Elevated risk for deep vein thrombosis due to immobility. PLAN/SUGGESTIONS: 1. Discuss with Nursing and Neurosurgery is to follow up regarding the patient's condition but also the right distal lower extremity weakness which was noted 2. Discuss with Physical Therapy to see if the right lower extremity weakness persists. 3. Physical therapy as tolerated. 4. Out of bed to chair. 5. Agree with SCDs. 6. Avoid pain medication with history of altered mental status. 7. Follow up chemistry after dialysis. 8. Nutritional consultation. 9. Skin precautions. 10. We will need inpatient rehabilitation preferably an acute rehabilitation for PT and OT and possibly speech therapy if she does have difficulty chewing and/or swallowing. OMID GOMEZ M.D. [id number]
--- NOTE | 2017-11-13 18:32 | PN ---
Progress Note (short form) - Note Progress Note: Renal follow up for ESRD on HD Pt seen and examined at the bedside no acute complaints chart reviewed, noted to have AMS/Rapid response after dialysis on Monday no LOC after that time no ROBIN, confusion, blurry vision Vital Signs Temperature 98.4 F 11/13/17 14:59 Pulse Rate 79 11/13/17 14:59 Respiratory Rate 18 11/13/17 14:59 Blood Pressure 131/73 11/13/17 14:59 O2 Sat by Pulse Oximetry (%) 99 11/13/17 09:00 Intake & Output 11/10/17 11/11/17 11/12/17 11/13/17 23:59 23:59 23:59 23:59 Intake Total 880 350 650 Output Total 30 Balance 850 350 650 Weight 65.091 kg 60.47 kg NAD Dressing on skull, clear and intact no LE edema CBC, BMP 11/13/17 06:30 11/11/17 08:15 Current Medications Acetaminophen (Tylenol -) 650 mg PO Q4H PRN PRN Reason: PAIN LEVEL 4 - 6 Last Admin: 11/12/17 21:04 Dose: 650 mg Acetaminophen (Tylenol -) 650 mg PO Q6H PRN PRN Reason: FEVER >99.5 Heparin Sodium (Porcine) (Heparin -) 5,000 unit SQ TID [facility] Last Admin: 11/13/17 14:09 Dose: Not Given Nifedipine (Procardia Xl -) 30 mg PO DAILY [facility] Last Admin: 11/13/17 10:30 Dose: 30 mg 57 year old woman with PMhx of ESRD on HD (TTS), Hypertension who presented with progressively worsening ROBIN and found to have a meningioma with mass effect. #Meningioma s/p resection Neurosurgery following neurology consult for AMS #ESRD on HD for dialysis tomorrow Will have 3 hour tx with minimal UF as to minimize fluid shifts #Hypertension BP at goal on Nifedpine #CKD Anemia/Post surgical Anemia trend CBC #Renal Osteodystrophy hold phos binders for now trend phos with HD Saurabh aLy DO
--- NOTE | 2017-11-13 21:45 | EKG ---
Test Reason : Blood Pressure : / mmHG Vent. Rate : 073 BPM Atrial Rate : 073 BPM P-R Int : 134 ms QRS Dur : 078 ms QT Int : 390 ms P-R-T Axes : 044 -15 004 degrees QTc Int : 429 ms NORMAL SINUS RHYTHM MODERATE VOLTAGE CRITERIA FOR LVH, MAY BE NORMAL VARIANT BORDERLINE ECG WHEN COMPARED WITH ECG OF 11-NOV-2017 11:40, NO SIGNIFICANT CHANGE WAS FOUND Confirmed by ABIMBOLA ROCHA, FUNMILAYO ([id number]) on 11/13/2017 9:44:49 PM Referred By: Confirmed By:FUNMILAYO DAILY MD
[2017-11-14] MEDS: HEPARIN NA (PORCINE) 5,000 UNITS/ML 1ML VIAL SQ SCH ×3 (06:37→23:02)
[2017-11-14 09:35] LABS: CHLORIDE 95 mmol/L (98-107); POTASSIUM 5.1 mmol/L (3.5-5.1); SODIUM 135 mmol/L (136-145)
[2017-11-14] MEDS: NIFEdipine E.R. 30 MG TABLET (FP) PO SCH (09:36)
[2017-11-14 10:17] LABS: ALBUMIN 2.5 g/dl (3.4-5.0); ALK PHOS 139 U/L (45-117); ANION GAP 16 (8-16); BILIRUBIN,TOTAL 0.5 mg/dL (0.2-1.0); BLOOD UREA NITROGEN 76 mg/dL (7-18); CALCIUM 8.2 mg/dL (8.5-10.1); CO2 24 mmol/L (21-32); GLUCOSE,RANDOM 95 mg/dL (74-106); PHOSPHOROUS 5.8 mg/dL (2.5-4.9); SGOT/AST 18 U/L (15-37); SGPT/ALT 8 U/L (12-78); TOT PROT 6.1 g/dl (6.4-8.2)
[2017-11-14 10:35] LABS: CREATININE 11.7 mg/dL (0.55-1.02)
--- NOTE | 2017-11-14 11:41 | CONSULT ---
Consult - text type - Consultation Consultation Note: Neurology History of Present Illness The patient is a 57 year old female with a significant PMH of hypertension and end stage renal disease (dialysis on Monday, , or Monday) who presents to the emergency department with headache, fatigue, and 1-2 episodes of emesis during dialysis. The noted the patient experiences headaches and fatigue after dialysis for the past three months that resolve on its own about 6 hours later. The patient reports the headaches are severe, throbbing, and localized at the frontal area. She completed CT head and MRI brain, showed meningioma for which underwent surgical intervention with Dr. Salazar. There was concern during dialysis that she was having jerking activity and possibly seizure like. EEG ordered. Since surgery, has been fatigued appearing with psychmotor slowing. No aggitation but seems limited in responses and interaction which may be part of recovery process and will need to monitor. Past History - Past Medical History COPD: No Dialysis: Yes (,,) HTN: Yes - Suicide/Smoking/Psychosocial Hx Smoking History: Never smoked Have you smoked in the past 12 months: No Information on smoking cessation initiated: No Hx Alcohol Use: No Drug/Substance Use Hx: No Substance Use Type: None Hx Substance Use Treatment: No - Past Medical History Allergies/Adverse Reactions: Allergies Allergy/AdvReac Type Severity Reaction Status Date / Time No Known Allergies Allergy Unverified 11/07/17 09:50 Home Medications: Ambulatory Orders Acetaminophen [Pain Relief] 650 mg PO PRN 11/07/17 Clonidine HCl 0.1 mg PO PRN 11/07/17 Nitroglycerin 0.4 mg SL PRN 11/07/17 Review of Systems - Review of Systems Constitutional: No: Chills, Fever HEENTM: No: Recent change in vision Respiratory: No: Cough, Shortness of Breath Cardiac (ROS): Yes: Syncope. No: Chest Pain, Edema ABD/GI: Yes: Nausea. No: Diarrhea, Vomiting Musculoskeletal: No: Muscle Pain Neurological: Yes: Headache. No: Tingling, Weakness All Other Systems: Reviewed and Negative *Physical Exam Vital Signs Period Temp Pulse Resp BP Sys/[place] Pulse Ox Last 24 Hr 98.4 F-99.4 F 76-79 18-20 131-155/73-80 99-99 GENERAL: (+) Fatigued but arousable to answer question. The patient is awake, alert, in no acute distress. HEAD: Normal with no signs of trauma. EYES: Pupils equal, round and reactive to light, extraocular movements intact, sclera anicteric, conjunctiva clear with no pallor. ENT: Ears normal, nares patent, oropharynx clear without exudates. Moist mucous membranes. NECK: Normal range of motion, supple without lymphadenopathy, JVD, or masses. LUNGS: Breath sounds equal, clear to auscultation bilaterally. No wheeze/ crackles. HEART: Regular rate and rhythm, normal S1 and S2 without murmur or rub. ABDOMEN: Soft/nontender/nondistended. BS wnl. No guarding or rebound. No palpable masses. No hepatosplenomegaly. EXTREMITIES: (+) Left AV fistula, palpable thrill. Normal range of motion, no edema. No clubbing or cyanosis. No cords, erythema, or tenderness. NEUROLOGICAL: Cranial nerves intact, no slurred speech, moves all extremtities grossly, sensory intact to LT, limited confrontation testing, gait deferred PSYCH: Normal mood, normal affect. SKIN: Warm, Dry, normal turgor, no rashes or lesions noted. CBCD WBC 8.4 K/mm3 (4.0-10.0) 11/13/17 06:30 RBC 2.58 M/mm3 (3.60-5.2) L 11/13/17 06:30 Hgb 8.3 GM/dL (10.7-15.3) L 11/13/17 06:30 Hct 25.1 % (32.4-45.2) L 11/13/17 06:30 MCV 97.4 fl (80-96) H 11/13/17 06:30 MCHC 33.1 g/dl (32.0-36.0) 11/13/17 06:30 RDW 13.9 % (11.6-15.6) 11/13/17 06:30 Plt Count 188 K/MM3 (134-434) 11/13/17 06:30 MPV 8.3 fl (7.5-11.1) 11/13/17 06:30 CMP Sodium 135 mmol/L (136-145) L 11/14/17 07:30 Potassium 5.1 mmol/L (3.5-5.1) 11/14/17 07:30 Chloride 95 mmol/L (98-107) L 11/14/17 07:30 Carbon Dioxide 24 mmol/L (21-32) 11/14/17 07:30 Anion Gap 16 (8-16) 11/14/17 07:30 BUN 76 mg/dL (7-18) H D 11/14/17 07:30 Creatinine 11.7 mg/dL (0.55-1.02) H* 11/14/17 07:30 Creat Clearance w eGFR 3.32 (>60) 11/14/17 07:30 Calcium 8.2 mg/dL (8.5-10.1) L 11/14/17 07:30 Total Bilirubin 0.5 mg/dL (0.2-1.0) 11/14/17 07:30 AST 18 U/L (15-37) 11/14/17 07:30 ALT 8 U/L (12-78) L 11/14/17 07:30 Alkaline Phosphatase 139 U/L (45-117) H 11/14/17 07:30 Total Protein 6.1 g/dl (6.4-8.2) L 11/14/17 07:30 Albumin 2.5 g/dl (3.4-5.0) L 11/14/17 07:30 - RADIOLOGY CT head reviewed MRI brain reviewed Medical Decision Making 57 year old female with a significant PMH of hypertension and end stage renal disease (dialysis on Monday, , or Monday) who presents to the emergency department with headache, fatigue, and 1-2 episodes of emesis during dialysis. The noted the patient experiences headaches and fatigue after dialysis for the past three months that resolve on its own about 6 hours later. The patient reports the headaches are severe, throbbing, and localized at the frontal area. She completed CT head and MRI brain, showed meningioma for which underwent surgical intervention with Dr. Salazar. There was concern during dialysis that she was having jerking activity and possibly seizure like. EEG ordered. Since surgery, has been fatigued appearing with psychmotor slowing. No aggitation but seems limited in responses and interaction which may be part of recovery process and will need to monitor. Will hold off on AEDS for now, pending EEG result. Episodic event during HD maybe secondary to volume shifts and electrolyte changes. Monitor mental status, had recent CT head on 11/11, will hold off for now on repeat imaging. Most likely fatigued 2/2 surgical intervention and recovery process. Monitor blood pressure, maintain normotensive range. Will follow.
[2017-11-14] MEDS ORDERED: EPOETIN ALFA 10,000 UNIT/1 ML VIAL IVPUSH ONE (13:00)
[2017-11-14 14:23] LABS: HEMATOCRIT 22.4 % (32.4-45.2); HEMOGLOBIN 7.4 GM/dL (10.7-15.3); MCH 31.7 pg (25.7-33.7); MCHC 32.9 g/dl (32.0-36.0); MEAN CELL VOLUME 96.4 fl (80-96); MEAN PLT VOLUME 8.2 fl (7.5-11.1); PLATELET COUNT 200 K/MM3 (134-434); RBC 2.32 M/mm3 (3.60-5.2); RDW 13.6 % (11.6-15.6); WHITE BLOOD COUNT 8.9 K/mm3 (4.0-10.0)
--- NOTE | 2017-11-14 14:39 | PN ---
Progress Note (short form) - Note Progress Note: Patient resting comfortably in bed. Awakens easily to voice. Appropriate conversation. Wound swelling is decreasing appropriately. Patient s/p EEG. Hemodialysis Pending. PLAN -check EEG, seizure prophylaxis per Dr. Roe -continue Physical Therapy -GI/DVT prophylaxis -Will evaluate her clinical course on dialysis today
--- NOTE | 2017-11-14 15:37 | PN ---
Progress Note, Physician Chief Complaint: seen in bed s/p EEG has headache awake alert - Current Medication List Current Medications: Active Medications Acetaminophen (Tylenol -) 650 mg PO Q4H PRN PRN Reason: PAIN LEVEL 4 - 6 Last Admin: 11/12/17 21:04 Dose: 650 mg Acetaminophen (Tylenol -) 650 mg PO Q6H PRN PRN Reason: FEVER >99.5 Heparin Sodium (Porcine) (Heparin -) 5,000 unit SQ TID [facility] Last Admin: 11/14/17 15:15 Dose: Not Given Nifedipine (Procardia Xl -) 30 mg PO DAILY [facility] Last Admin: 11/14/17 09:36 Dose: 30 mg - Objective Vital Signs: Vital Signs Temperature 99.2 F 11/14/17 13:15 Pulse Rate 80 11/14/17 14:30 Respiratory Rate 18 11/14/17 14:30 Blood Pressure 142/84 11/14/17 14:30 O2 Sat by Pulse Oximetry (%) 99 11/14/17 09:00 Constitutional: Yes: Calm Cardiovascular: Yes: Regular Rate and Rhythm, S1, S2 Respiratory: Yes: CTA Bilaterally Gastrointestinal: Yes: Normal Bowel Sounds, Soft Neurological: Yes: Alert Labs: CBC, BMP 11/14/17 13:20 11/14/17 07:30 INR, PTT INR 1.04 (0.82-1.09) 11/08/17 07:11 Problem List - Problems (1) ESRD (end stage renal disease) on dialysis Assessment/Plan: HD per renal Code(s): N18.6 - END STAGE RENAL DISEASE; Z99.2 - DEPENDENCE ON RENAL DIALYSIS (2) Meningioma Assessment/Plan: s/p craniotomy and resection of meningioma MAITE on board s/p BEKA drain pathology report shows menigioma pain control DVT ppx Code(s): D32.9 - BENIGN NEOPLASM OF MENINGES, UNSPECIFIED (3) Near syncope Assessment/Plan: possible siezure activity s/p EEG neuro consult appreciated Code(s): R55 - SYNCOPE AND COLLAPSE
[2017-11-14] MEDS: ACETAMINOPHEN 325 MG TABLET (FP) PO PRN (15:47)
--- NOTE | 2017-11-14 15:57 | PN ---
Progress Note (short form) - Note Progress Note: Renal follow up for ESRD on HD Pt seen and examined at the bedside s/p dialysis earlier today but pt experienced severe frontal RBOIN 10/10 w/o LOC or extremity weakness dialysis terminated at 40 minutes BP stable during the treatment ROBIN improving off dialysis Vital Signs Temperature 99.2 F 11/14/17 13:15 Pulse Rate 80 11/14/17 14:30 Respiratory Rate 18 11/14/17 14:30 Blood Pressure 142/84 11/14/17 14:30 O2 Sat by Pulse Oximetry (%) 99 11/14/17 09:00 Intake & Output 11/11/17 11/12/17 11/13/17 11/14/17 23:59 23:59 23:59 23:59 Intake Total 350 650 150 50 Balance 350 650 150 50 Weight 65.091 kg 60.47 kg NAD Dressing on skull, clear and intact no LE edema CBC, BMP 11/14/17 13:20 11/14/17 07:30 Current Medications Acetaminophen (Tylenol -) 650 mg PO Q4H PRN PRN Reason: PAIN LEVEL 4 - 6 Last Admin: 11/14/17 15:47 Dose: 650 mg Acetaminophen (Tylenol -) 650 mg PO Q6H PRN PRN Reason: FEVER >99.5 Heparin Sodium (Porcine) (Heparin -) 5,000 unit SQ TID [facility] Last Admin: 11/14/17 15:15 Dose: Not Given Nifedipine (Procardia Xl -) 30 mg PO DAILY [facility] Last Admin: 11/14/17 09:36 Dose: 30 mg 57 year old woman with PMhx of ESRD on HD (TTS), Hypertension who presented with progressively worsening ROBIN and found to have a meningioma with mass effect. #Meningioma s/p resection spoke to neurosurgery, will send for CT of the head to access for any bleed will await neurology recomendations for anti-seizure meds, EEG done this am supportive care #ESRD on HD pt unable to tolerated dialysis today will reaccess in AM for further dialysis renal diet #Hypertension BP at goal on Nifedpine #CKD Anemia/Post surgical Anemia trend CBC #Renal Osteodystrophy hold phos binders for now trend phos with HD Saurabh Lay DO
[2017-11-15] MEDS: HEPARIN NA (PORCINE) 5,000 UNITS/ML 1ML VIAL SQ SCH ×3 (06:22→21:42)
[2017-11-15 08:17] LABS: BASO % 0.4 % (0-2.0); HEMATOCRIT 23.2 % (32.4-45.2); HEMOGLOBIN 7.7 GM/dL (10.7-15.3); LYMPH % 17.4 % (8-40); MCH 31.9 pg (25.7-33.7); MCHC 33.2 g/dl (32.0-36.0); MEAN CELL VOLUME 96.1 fl (80-96); MEAN PLT VOLUME 8.2 fl (7.5-11.1); MONO % 8.9 % (3.8-10.2); NEUT % 69.3 % (42.8-82.8); PLATELET COUNT 199 K/MM3 (134-434); RBC 2.41 M/mm3 (3.60-5.2); RDW 13.7 % (11.6-15.6); WHITE BLOOD COUNT 8.2 K/mm3 (4.0-10.0)
--- NOTE | 2017-11-15 09:34 | PN ---
Progress Note (short form) - Note Progress Note: Neurology History of Present Illness The patient is a 57 year old female with a significant PMH of hypertension and end stage renal disease (dialysis on Monday, , or Monday) who presented to the emergency department with headache, fatigue, and 1-2 episodes of emesis during dialysis. The noted the patient experiences headaches and fatigue after dialysis for the past three months that resolve on its own about 6 hours later. The patient reports the headaches are severe, throbbing, and localized at the frontal area. She completed CT head and MRI brain, showed meningioma for which underwent surgical intervention with Dr. Salazar. There was concern during dialysis that she was having jerking activity and possibly seizure like. EEG ordered. Yesterday during HD, had headache but no change in mental status. Was contacted by cement mason helper. CT head repeat, no acute changes. She is much more alert and awake this AM. Appears to be near baseline mental status. Active Medications Acetaminophen (Tylenol -) 650 mg PO Q4H PRN PRN Reason: PAIN LEVEL 4 - 6 Last Admin: 11/14/17 15:47 Dose: 650 mg Acetaminophen (Tylenol -) 650 mg PO Q6H PRN PRN Reason: FEVER >99.5 Heparin Sodium (Porcine) (Heparin -) 5,000 unit SQ TID [facility] Last Admin: 11/15/17 06:22 Dose: 5,000 unit Nifedipine (Procardia Xl -) 30 mg PO DAILY [facility] Last Admin: 11/14/17 09:36 Dose: 30 mg *Physical Exam Vital Signs Temperature 98.9 F 11/15/17 06:34 Pulse Rate 73 11/15/17 06:34 Respiratory Rate 20 11/15/17 06:34 Blood Pressure 130/72 11/15/17 06:34 O2 Sat by Pulse Oximetry (%) 95 11/15/17 06:00 GENERAL: (+) Fatigued but arousable to answer question. The patient is awake, alert, in no acute distress. HEAD: Normal with no signs of trauma. EYES: Pupils equal, round and reactive to light, extraocular movements intact, sclera anicteric, conjunctiva clear with no pallor. ENT: Ears normal, nares patent, oropharynx clear without exudates. Moist mucous membranes. NECK: Normal range of motion, supple without lymphadenopathy, JVD, or masses. LUNGS: Breath sounds equal, clear to auscultation bilaterally. No wheeze/ crackles. HEART: Regular rate and rhythm, normal S1 and S2 without murmur or rub. ABDOMEN: Soft/nontender/nondistended. BS wnl. No guarding or rebound. No palpable masses. No hepatosplenomegaly. EXTREMITIES: (+) Left AV fistula, palpable thrill. Normal range of motion, no edema. No clubbing or cyanosis. No cords, erythema, or tenderness. NEUROLOGICAL: Cranial nerves intact, no slurred speech, moves all extremtities grossly, sensory intact to LT, limited confrontation testing, gait deferred PSYCH: Normal mood, normal affect. SKIN: Warm, Dry, normal turgor, no rashes or lesions noted. CBCD WBC 8.2 K/mm3 (4.0-10.0) 11/15/17 06:30 RBC 2.41 M/mm3 (3.60-5.2) L 11/15/17 06:30 Hgb 7.7 GM/dL (10.7-15.3) L 11/15/17 06:30 Hct 23.2 % (32.4-45.2) L 11/15/17 06:30 MCV 96.1 fl (80-96) H 11/15/17 06:30 MCHC 33.2 g/dl (32.0-36.0) 11/15/17 06:30 RDW 13.7 % (11.6-15.6) 11/15/17 06:30 Plt Count 199 K/MM3 (134-434) 11/15/17 06:30 MPV 8.2 fl (7.5-11.1) 11/15/17 06:30 CMP Sodium 135 mmol/L (136-145) L 11/14/17 07:30 Potassium 5.1 mmol/L (3.5-5.1) 11/14/17 07:30 Chloride 95 mmol/L (98-107) L 11/14/17 07:30 Carbon Dioxide 24 mmol/L (21-32) 11/14/17 07:30 Anion Gap 16 (8-16) 11/14/17 07:30 BUN 76 mg/dL (7-18) H D 11/14/17 07:30 Creatinine 11.7 mg/dL (0.55-1.02) H* 11/14/17 07:30 Creat Clearance w eGFR 3.32 (>60) 11/14/17 07:30 Calcium 8.2 mg/dL (8.5-10.1) L 11/14/17 07:30 Total Bilirubin 0.5 mg/dL (0.2-1.0) 11/14/17 07:30 AST 18 U/L (15-37) 11/14/17 07:30 ALT 8 U/L (12-78) L 11/14/17 07:30 Alkaline Phosphatase 139 U/L (45-117) H 11/14/17 07:30 Total Protein 6.1 g/dl (6.4-8.2) L 11/14/17 07:30 Albumin 2.5 g/dl (3.4-5.0) L 11/14/17 07:30 - RADIOLOGY CT head reviewed X2 MRI brain reviewed Medical Decision Making 57 year old female with a significant PMH of hypertension and end stage renal disease (dialysis on Monday, , or Monday) who presents to the emergency department with headache, fatigue, and 1-2 episodes of emesis during dialysis. The noted the patient experiences headaches and fatigue after dialysis for the past three months that resolve on its own about 6 hours later. The patient reports the headaches are severe, throbbing, and localized at the frontal area. She completed CT head and MRI brain, showed meningioma for which underwent surgical intervention with Dr. Salazar. There was concern during dialysis that she was having jerking activity and possibly seizure like. EEG ordered, pending EEG result. Episodic event during HD maybe secondary to volume shifts and electrolyte changes. Headaches possibly tension type 2/2 surgical intervention vs volume shifts during HD. Continue to monitor mental status, CT head stable. Monitor blood pressure, maintain normotensive range. Now more at baseline, consider short term rehab.
[2017-11-15 09:52] LABS: CHLORIDE 97 mmol/L (98-107); POTASSIUM 5.3 mmol/L (3.5-5.1); SODIUM 135 mmol/L (136-145)
[2017-11-15] MEDS: NIFEdipine E.R. 30 MG TABLET (FP) PO SCH (10:20)
[2017-11-15 11:19] LABS: GLUCOSE,RANDOM 105 mg/dL (74-106)
--- NOTE | 2017-11-15 11:57 | PN ---
Progress Note, Physician History of Present Illness: ALERT AND AWAKE THIS AM - Current Medication List Current Medications: Active Medications Acetaminophen (Tylenol -) 650 mg PO Q4H PRN PRN Reason: PAIN LEVEL 4 - 6 Last Admin: 11/14/17 15:47 Dose: 650 mg Acetaminophen (Tylenol -) 650 mg PO Q6H PRN PRN Reason: FEVER >99.5 Heparin Sodium (Porcine) (Heparin -) 5,000 unit SQ TID [facility] Last Admin: 11/15/17 06:22 Dose: 5,000 unit Nifedipine (Procardia Xl -) 30 mg PO DAILY [facility] Last Admin: 11/15/17 10:20 Dose: 30 mg - Objective Vital Signs: Vital Signs Temperature 98.9 F 11/15/17 06:34 Pulse Rate 73 11/15/17 06:34 Respiratory Rate 20 11/15/17 06:34 Blood Pressure 130/72 11/15/17 06:34 O2 Sat by Pulse Oximetry (%) 95 11/15/17 06:00 Cardiovascular: Yes: S1 Respiratory: Yes: Regular, CTA Bilaterally Gastrointestinal: Yes: Normal Bowel Sounds, Soft Neurological: Yes: Alert, Oriented, Weakness Labs: CBC, BMP 11/15/17 06:30 11/15/17 09:25 INR, PTT INR 1.04 (0.82-1.09) 11/08/17 07:11 Problem List - Problems (1) Meningioma Code(s): D32.9 - BENIGN NEOPLASM OF MENINGES, UNSPECIFIED (2) ESRD (end stage renal disease) on dialysis Code(s): N18.6 - END STAGE RENAL DISEASE; Z99.2 - DEPENDENCE ON RENAL DIALYSIS (3) Near syncope Code(s): R55 - SYNCOPE AND COLLAPSE Assessment/Plan - Problems (1) ESRD (end stage renal disease) on dialysis Assessment/Plan: HD per renal Code(s): N18.6 - END STAGE RENAL DISEASE; Z99.2 - DEPENDENCE ON RENAL DIALYSIS (2) Meningioma Assessment/Plan: s/p craniotomy and resection of meningioma MAITE on board s/p BEKA drain pathology report shows menigioma pain control DVT ppx Code(s): D32.9 - BENIGN NEOPLASM OF MENINGES, UNSPECIFIED (3) Near syncope Assessment/Plan: possible siezure activity s/p EEG neuro consult appreciated Code(s): R55 - SYNCOPE AND COLLAPSE WILL NEED SNF
[2017-11-15 12:41] LABS: BLOOD UREA NITROGEN 92 mg/dL (7-18); CREATININE 12.5 mg/dL (0.55-1.02)
[2017-11-15 12:56] LABS: ANION GAP 16 (8-16); CO2 22 mmol/L (21-32)
[2017-11-15] MEDS: ACETAMINOPHEN 325 MG TABLET (FP) PO PRN (16:26)
--- NOTE | 2017-11-15 16:59 | PN ---
Progress Note (short form) - Note Progress Note: Renal follow up for ESRD on HD Pt seen and examined at the bedside awake and alert no ROBIN at the present time CT head negative for any bleeding Vital Signs Temperature 98.3 F 11/15/17 15:20 Pulse Rate 82 11/15/17 16:25 Respiratory Rate 18 11/15/17 16:25 Blood Pressure 150/79 11/15/17 16:25 O2 Sat by Pulse Oximetry (%) 98 11/15/17 09:00 Intake & Output 11/12/17 11/13/17 11/14/17 11/15/17 23:59 23:59 23:59 23:59 Intake Total 650 150 250 Balance 650 150 250 Weight 65.091 kg 60.47 kg NAD Dressing on skull, clear and intact no LE edema CBC, BMP 11/15/17 06:30 11/15/17 09:25 Current Medications Acetaminophen (Tylenol -) 650 mg PO Q4H PRN PRN Reason: PAIN LEVEL 4 - 6 Last Admin: 11/15/17 16:26 Dose: 650 mg Acetaminophen (Tylenol -) 650 mg PO Q6H PRN PRN Reason: FEVER >99.5 Heparin Sodium (Porcine) (Heparin -) 5,000 unit SQ TID [facility] Last Admin: 11/15/17 15:32 Dose: Not Given Nifedipine (Procardia Xl -) 30 mg PO DAILY [facility] Last Admin: 11/15/17 10:20 Dose: 30 mg 57 year old woman with PMhx of ESRD on HD (TTS), Hypertension who presented with progressively worsening ROBIN and found to have a meningioma with mass effect. #Meningioma s/p resection CT head negative for any acute bleed Neurology and Neurosurgery following #ESRD on HD will attempt very gentle dialysis with lower blood flow rate acetaminaphen as needed trend BUN/Cr #Hypertension BP at goal on Nifedpine #CKD Anemia/Post surgical Anemia trend CBC #Renal Osteodystrophy hold phos binders for now trend phos with HD Saurabh Lay DO
[2017-11-16] MEDS: HEPARIN NA (PORCINE) 5,000 UNITS/ML 1ML VIAL SQ SCH ×3 (07:09→22:16)
[2017-11-16 07:56] LABS: ALBUMIN 2.3 g/dl (3.4-5.0); ANION GAP 11 (8-16); BILIRUBIN,TOTAL 0.3 mg/dL (0.2-1.0); BLOOD UREA NITROGEN 72 mg/dL (7-18); CALCIUM 8.4 mg/dL (8.5-10.1); CHLORIDE 97 mmol/L (98-107); CO2 29 mmol/L (21-32); GLUCOSE,RANDOM 90 mg/dL (74-106); POTASSIUM 5.1 mmol/L (3.5-5.1); SGOT/AST 20 U/L (15-37); SGPT/ALT 10 U/L (12-78); SODIUM 137 mmol/L (136-145); TOT PROT 5.7 g/dl (6.4-8.2)
[2017-11-16 08:03] LABS: BASO % 0.5 % (0-2.0); EOS % 3.1 % (0-4.5); HEMATOCRIT 23.5 % (32.4-45.2); HEMOGLOBIN 7.8 GM/dL (10.7-15.3); LYMPH % 14.9 % (8-40); MCH 32.1 pg (25.7-33.7); MCHC 33.3 g/dl (32.0-36.0); MEAN CELL VOLUME 96.5 fl (80-96); MEAN PLT VOLUME 8.2 fl (7.5-11.1); MONO % 8.9 % (3.8-10.2); NEUT % 72.6 % (42.8-82.8); PLATELET COUNT 203 K/MM3 (134-434); RBC 2.44 M/mm3 (3.60-5.2); RDW 13.3 % (11.6-15.6); WHITE BLOOD COUNT 7.9 K/mm3 (4.0-10.0)
[2017-11-16 08:06] LABS: ALK PHOS 123 U/L (45-117)
--- NOTE | 2017-11-16 09:36 | PN ---
Progress Note, Physician History of Present Illness: ALERT BUT WEAK THIS AM - Current Medication List Current Medications: Active Medications Acetaminophen (Tylenol -) 650 mg PO Q4H PRN PRN Reason: PAIN LEVEL 4 - 6 Last Admin: 11/15/17 16:26 Dose: 650 mg Acetaminophen (Tylenol -) 650 mg PO Q6H PRN PRN Reason: FEVER >99.5 Heparin Sodium (Porcine) (Heparin -) 5,000 unit SQ TID [facility] Last Admin: 11/16/17 07:09 Dose: 5,000 unit Nifedipine (Procardia Xl -) 30 mg PO DAILY [facility] Last Admin: 11/15/17 10:20 Dose: 30 mg - Objective Vital Signs: Vital Signs Temperature 98.5 F 11/16/17 06:41 Pulse Rate 69 11/16/17 06:41 Respiratory Rate 20 11/16/17 06:41 Blood Pressure 136/70 11/16/17 06:41 O2 Sat by Pulse Oximetry (%) 98 11/15/17 09:00 Cardiovascular: Yes: Regular Rate and Rhythm Respiratory: Yes: Regular, CTA Bilaterally Gastrointestinal: Yes: Normal Bowel Sounds, Soft Neurological: Yes: Alert, Unsteady Gait, Weakness Labs: CBC, BMP 11/16/17 06:00 11/16/17 06:00 INR, PTT INR 1.04 (0.82-1.09) 11/08/17 07:11 Problem List - Problems (1) Meningioma Code(s): D32.9 - BENIGN NEOPLASM OF MENINGES, UNSPECIFIED (2) ESRD (end stage renal disease) on dialysis Code(s): N18.6 - END STAGE RENAL DISEASE; Z99.2 - DEPENDENCE ON RENAL DIALYSIS (3) Near syncope Code(s): R55 - SYNCOPE AND COLLAPSE Assessment/Plan - Problems (1) ESRD (end stage renal disease) on dialysis Assessment/Plan: HD per renal Code(s): N18.6 - END STAGE RENAL DISEASE; Z99.2 - DEPENDENCE ON RENAL DIALYSIS (2) Meningioma Assessment/Plan: s/p craniotomy and resection of meningioma MAITE on board s/p BEKA drain pathology report shows menigioma pain control DVT ppx Code(s): D32.9 - BENIGN NEOPLASM OF MENINGES, UNSPECIFIED (3) Near syncope Assessment/Plan: possible siezure activity s/p EEG neuro consult appreciated Code(s): R55 - SYNCOPE AND COLLAPSE (4) ANEMIA Assessment/Plan: PRBC WITH DIALYSIS
--- NOTE | 2017-11-16 10:15 | PN ---
Progress Note (short form) - Note Progress Note: Neurology History of Present Illness The patient is a 57 year old female with a significant PMH of hypertension and end stage renal disease (dialysis on Monday, , or Monday) who presented to the emergency department with headache, fatigue, and 1-2 episodes of emesis during dialysis. The noted the patient experiences headaches and fatigue after dialysis for the past three months that resolve on its own about 6 hours later. The patient reports the headaches are severe, throbbing, and localized at the frontal area. She completed CT head and MRI brain, showed meningioma for which underwent surgical intervention with Dr. Salazar. There was concern during dialysis that she was having jerking activity and possibly seizure like. EEG ordered. AWaiting final read. CT head repeat, no acute changes. Patient with flat affect and did not want to interact but could tell me name, location, date, name of President. Ongoing headaches and will start Fioricet as tylenol had not been effective thus far. Spoke to Nephrology, had to had HD session interrupted yesterday. Active Medications Acetaminophen (Tylenol -) 650 mg PO Q4H PRN PRN Reason: PAIN LEVEL 4 - 6 Last Admin: 11/15/17 16:26 Dose: 650 mg Acetaminophen (Tylenol -) 650 mg PO Q6H PRN PRN Reason: FEVER >99.5 Acetaminophen/Butalbital/Caffeine (Fioricet -) 1 tablet PO Q24H PRN PRN Reason: HEADACHE Heparin Sodium (Porcine) (Heparin -) 5,000 unit SQ TID [facility] Last Admin: 11/16/17 07:09 Dose: 5,000 unit Nifedipine (Procardia Xl -) 30 mg PO DAILY [facility] Last Admin: 11/15/17 10:20 Dose: 30 mg *Physical Exam Vital Signs Temperature 98.5 F 11/16/17 06:41 Pulse Rate 69 11/16/17 06:41 Respiratory Rate 20 11/16/17 06:41 Blood Pressure 136/70 11/16/17 06:41 O2 Sat by Pulse Oximetry (%) 98 11/15/17 09:00 GENERAL: (+) Fatigued but arousable to answer question. The patient is awake, alert, in no acute distress. HEAD: Normal with no signs of trauma. EYES: Pupils equal, round and reactive to light, extraocular movements intact, sclera anicteric, conjunctiva clear with no pallor. ENT: Ears normal, nares patent, oropharynx clear without exudates. Moist mucous membranes. NECK: Normal range of motion, supple without lymphadenopathy, JVD, or masses. LUNGS: Breath sounds equal, clear to auscultation bilaterally. No wheeze/ crackles. HEART: Regular rate and rhythm, normal S1 and S2 without murmur or rub. ABDOMEN: Soft/nontender/nondistended. BS wnl. No guarding or rebound. No palpable masses. No hepatosplenomegaly. EXTREMITIES: (+) Left AV fistula, palpable thrill. Normal range of motion, no edema. No clubbing or cyanosis. No cords, erythema, or tenderness. NEUROLOGICAL: Cranial nerves intact, no slurred speech, moves all extremtities grossly, sensory intact to LT, limited confrontation testing, gait deferred PSYCH: Normal mood, normal affect. SKIN: Warm, Dry, normal turgor, no rashes or lesions noted. CBCD WBC 7.9 K/mm3 (4.0-10.0) 11/16/17 06:00 RBC 2.44 M/mm3 (3.60-5.2) L 11/16/17 06:00 Hgb 7.8 GM/dL (10.7-15.3) L 11/16/17 06:00 Hct 23.5 % (32.4-45.2) L 11/16/17 06:00 MCV 96.5 fl (80-96) H 11/16/17 06:00 MCHC 33.3 g/dl (32.0-36.0) 11/16/17 06:00 RDW 13.3 % (11.6-15.6) 11/16/17 06:00 Plt Count 203 K/MM3 (134-434) 11/16/17 06:00 MPV 8.2 fl (7.5-11.1) 11/16/17 06:00 CMP Sodium 137 mmol/L (136-145) 11/16/17 06:00 Potassium 5.1 mmol/L (3.5-5.1) 11/16/17 06:00 Chloride 97 mmol/L (98-107) L 11/16/17 06:00 Carbon Dioxide 29 mmol/L (21-32) 11/16/17 06:00 Anion Gap 11 (8-16) 11/16/17 06:00 BUN 72 mg/dL (7-18) H 11/16/17 06:00 Creatinine 10.0 mg/dL (0.55-1.02) H* 11/16/17 06:00 Creat Clearance w eGFR 3.98 (>60) 11/16/17 06:00 Calcium 8.4 mg/dL (8.5-10.1) L 11/16/17 06:00 Total Bilirubin 0.3 mg/dL (0.2-1.0) D 11/16/17 06:00 AST 20 U/L (15-37) 11/16/17 06:00 ALT 10 U/L (12-78) L 11/16/17 06:00 Alkaline Phosphatase 123 U/L (45-117) H 11/16/17 06:00 Total Protein 5.7 g/dl (6.4-8.2) L 11/16/17 06:00 Albumin 2.3 g/dl (3.4-5.0) L 11/16/17 06:00 - RADIOLOGY CT head reviewed X2 MRI brain reviewed Medical Decision Making 57 year old female with a significant PMH of hypertension and end stage renal disease (dialysis on Monday, , or Monday) who presents to the emergency department with headache, fatigue, and 1-2 episodes of emesis during dialysis. The noted the patient experiences headaches and fatigue after dialysis for the past three months that resolve on its own about 6 hours later. The patient reports the headaches are severe, throbbing, and localized at the frontal area. She completed CT head and MRI brain, showed meningioma for which underwent surgical intervention with Dr. Salazar. There was concern during dialysis that she was having jerking activity and possibly seizure like. EEG ordered, pending EEG result. Episodic event during HD maybe secondary to volume shifts and electrolyte changes. Fioricet started for tension headaches. Avoid mixing with tylenol and would not recommend giving both at the same time. Continue to monitor mental status, CT head stable. Monitor blood pressure, maintain normotensive range. Now more at baseline, consider short term rehab, discussed with director case.
[2017-11-16] MEDS: NIFEdipine E.R. 30 MG TABLET (FP) PO SCH (10:34)
[2017-11-16] MEDS ORDERED: EPOETIN ALFA 20,000 UNIT/1 ML VIAL IVPUSH ONE (12:30)
[2017-11-16] MEDS: ACETAMINOPHEN/CAFFEINE/BUTALBITAL 1 TAB PO PRN (13:42)
--- NOTE | 2017-11-16 16:14 | PN ---
Progress Note (short form) - Note Progress Note: Renal follow up for ESRD on HD Pt seen and examined at the bedside no acute complaints as of this morning had frontal ROBIN yesterday about 45 minutes into dialysis and treatment was discontinued seen by neurology, started on Fioricet Vital Signs Temperature 98.3 F 11/16/17 14:00 Pulse Rate 67 11/16/17 15:40 Respiratory Rate 18 11/16/17 15:40 Blood Pressure 142/76 11/16/17 15:40 O2 Sat by Pulse Oximetry (%) 99 11/16/17 09:00 NAD awake and alert RRR CTA soft NT/ND No LE edema CBC, BMP 11/16/17 06:00 11/16/17 06:00 Current Medications Acetaminophen (Tylenol -) 650 mg PO Q4H PRN PRN Reason: PAIN LEVEL 4 - 6 Last Admin: 11/15/17 16:26 Dose: 650 mg Acetaminophen (Tylenol -) 650 mg PO Q6H PRN PRN Reason: FEVER >99.5 Acetaminophen/Butalbital/Caffeine (Fioricet -) 1 tablet PO Q24H PRN PRN Reason: HEADACHE Last Admin: 11/16/17 13:42 Dose: 1 tablet Heparin Sodium (Porcine) (Heparin -) 5,000 unit SQ TID [facility] Last Admin: 11/16/17 13:42 Dose: 5,000 unit Nifedipine (Procardia Xl -) 30 mg PO DAILY [facility] Last Admin: 11/16/17 10:34 Dose: 30 mg 57 year old woman with PMhx of ESRD on HD (TTS), Hypertension who presented with progressively worsening ROBIN and found to have a meningioma with mass effect. #Meningioma s/p resection CT head negative for any acute bleed Neurology and Neurosurgery following #ESRD on HD pt was not able to tolerate dialysis yesterday because of ROBIN started on Fiorcet by neurology will attempt dialysis again today #Hypertension BP at goal on Nifedpine #CKD Anemia/Post surgical Anemia trend CBC to get PRBC transfusion with dialysis #Renal Osteodystrophy hold phos binders for now trend phos with HD Saurabh Lay DO
--- NOTE | 2017-11-16 16:28 | PN ---
Progress Note (short form) - Note Progress Note: Patient was awake and alert en route to dialysis. No complaints of headaches. PLAN -awaiting response to HD today -awaiting EEG results -Continue Physical Therapy -Discharge to Rehab/SNF once stable
[2017-11-16] MEDS: ACETAMINOPHEN 325 MG TABLET (FP) PO PRN (17:47)
[2017-11-17] MEDS: HEPARIN NA (PORCINE) 5,000 UNITS/ML 1ML VIAL SQ SCH ×3 (06:02→21:21)
--- NOTE | 2017-11-17 08:41 | PN ---
Progress Note, Physician History of Present Illness: ALERT BUT WEAK THIS AM - Current Medication List Current Medications: Active Medications Acetaminophen (Tylenol -) 650 mg PO Q4H PRN PRN Reason: PAIN LEVEL 4 - 6 Last Admin: 11/16/17 17:47 Dose: 650 mg Acetaminophen (Tylenol -) 650 mg PO Q6H PRN PRN Reason: FEVER >99.5 Acetaminophen/Butalbital/Caffeine (Fioricet -) 1 tablet PO Q24H PRN PRN Reason: HEADACHE Last Admin: 11/16/17 13:42 Dose: 1 tablet Heparin Sodium (Porcine) (Heparin -) 5,000 unit SQ TID [facility] Last Admin: 11/17/17 06:02 Dose: 5,000 unit Nifedipine (Procardia Xl -) 30 mg PO DAILY [facility] Last Admin: 11/16/17 10:34 Dose: 30 mg - Objective Vital Signs: Vital Signs Temperature 98.6 F 11/17/17 06:27 Pulse Rate 88 11/17/17 06:27 Respiratory Rate 20 11/17/17 06:27 Blood Pressure 115/82 11/17/17 06:27 O2 Sat by Pulse Oximetry (%) 100 11/16/17 21:00 Cardiovascular: Yes: Regular Rate and Rhythm Respiratory: Yes: Regular, CTA Bilaterally Gastrointestinal: Yes: Normal Bowel Sounds, Soft Neurological: Yes: Other (SLEEPING BUT AROUSABLE MOVING ALL EXTREMETIES OVERALL WEAK) Labs: CBC, BMP 11/16/17 06:00 11/16/17 06:00 INR, PTT INR 1.04 (0.82-1.09) 11/08/17 07:11 Problem List - Problems (1) Meningioma Code(s): D32.9 - BENIGN NEOPLASM OF MENINGES, UNSPECIFIED (2) ESRD (end stage renal disease) on dialysis Code(s): N18.6 - END STAGE RENAL DISEASE; Z99.2 - DEPENDENCE ON RENAL DIALYSIS (3) Near syncope Code(s): R55 - SYNCOPE AND COLLAPSE Assessment/Plan - Problems (1) ESRD (end stage renal disease) on dialysis Assessment/Plan: HD per renal Code(s): N18.6 - END STAGE RENAL DISEASE; Z99.2 - DEPENDENCE ON RENAL DIALYSIS (2) Meningioma Assessment/Plan: s/p craniotomy and resection of meningioma MAITE on board s/p BEKA drain pathology report shows menigioma pain control DVT ppx F/U CT Code(s): D32.9 - BENIGN NEOPLASM OF MENINGES, UNSPECIFIED (3) Near syncope Assessment/Plan: possible siezure activity s/p EEG neuro consult appreciated Code(s): R55 - SYNCOPE AND COLLAPSE (4) ANEMIA Assessment/Plan: PRBC WITH DIALYSIS
--- NOTE | 2017-11-17 09:53 | PN ---
Progress Note (short form) - Note Progress Note: Neurology History of Present Illness The patient is a 57 year old female with a significant PMH of hypertension and end stage renal disease (dialysis on Monday, , or Monday) who presented to the emergency department with headache, fatigue, and 1-2 episodes of emesis during dialysis. The noted the patient experiences headaches and fatigue after dialysis for the past three months that resolve on its own about 6 hours later. The patient reports the headaches are severe, throbbing, and localized at the frontal area. She completed CT head and MRI brain, showed meningioma for which underwent surgical intervention with Dr. Salazar. There was concern during dialysis that she was having jerking activity and possibly seizure like. EEG ordered. Awaiting final read. CT head repeat, no acute changes. Patient more interactive today and again could tell me name, location, date, name of President. Ongoing headaches and given Fioricet for headache during HD. Perhaps giving Fioricet 30mins before session would be more effective. However, seems to be having headaches regardless of medication being given. Active Medications Acetaminophen (Tylenol -) 650 mg PO Q4H PRN PRN Reason: PAIN LEVEL 4 - 6 Last Admin: 11/16/17 17:47 Dose: 650 mg Acetaminophen (Tylenol -) 650 mg PO Q6H PRN PRN Reason: FEVER >99.5 Acetaminophen/Butalbital/Caffeine (Fioricet -) 1 tablet PO Q24H PRN PRN Reason: HEADACHE Last Admin: 11/16/17 13:42 Dose: 1 tablet Heparin Sodium (Porcine) (Heparin -) 5,000 unit SQ TID [facility] Last Admin: 11/17/17 06:02 Dose: 5,000 unit Nifedipine (Procardia Xl -) 30 mg PO DAILY [facility] Last Admin: 11/16/17 10:34 Dose: 30 mg *Physical Exam Vital Signs Period Temp Pulse Resp BP Sys/[place] Pulse Ox Last 24 Hr 98.3 F-98.6 F 65-88 16-20 115-177/72-100 100 GENERAL: (+) Fatigued but arousable to answer question. The patient is awake, alert, in no acute distress. HEAD: Normal with no signs of trauma. EYES: Pupils equal, round and reactive to light, extraocular movements intact, sclera anicteric, conjunctiva clear with no pallor. ENT: Ears normal, nares patent, oropharynx clear without exudates. Moist mucous membranes. NECK: Normal range of motion, supple without lymphadenopathy, JVD, or masses. LUNGS: Breath sounds equal, clear to auscultation bilaterally. No wheeze/ crackles. HEART: Regular rate and rhythm, normal S1 and S2 without murmur or rub. ABDOMEN: Soft/nontender/nondistended. BS wnl. No guarding or rebound. No palpable masses. No hepatosplenomegaly. EXTREMITIES: (+) Left AV fistula, palpable thrill. Normal range of motion, no edema. No clubbing or cyanosis. No cords, erythema, or tenderness. NEUROLOGICAL: Cranial nerves intact, no slurred speech, moves all extremtities grossly, sensory intact to LT, limited confrontation testing, gait deferred PSYCH: Normal mood, normal affect. SKIN: Warm, Dry, normal turgor, no rashes or lesions noted. CBCD WBC 7.9 K/mm3 (4.0-10.0) 11/16/17 06:00 RBC 2.44 M/mm3 (3.60-5.2) L 11/16/17 06:00 Hgb 7.8 GM/dL (10.7-15.3) L 11/16/17 06:00 Hct 23.5 % (32.4-45.2) L 11/16/17 06:00 MCV 96.5 fl (80-96) H 11/16/17 06:00 MCHC 33.3 g/dl (32.0-36.0) 11/16/17 06:00 RDW 13.3 % (11.6-15.6) 11/16/17 06:00 Plt Count 203 K/MM3 (134-434) 11/16/17 06:00 MPV 8.2 fl (7.5-11.1) 11/16/17 06:00 CMP Sodium 137 mmol/L (136-145) 11/16/17 06:00 Potassium 5.1 mmol/L (3.5-5.1) 11/16/17 06:00 Chloride 97 mmol/L (98-107) L 11/16/17 06:00 Carbon Dioxide 29 mmol/L (21-32) 11/16/17 06:00 Anion Gap 11 (8-16) 11/16/17 06:00 BUN 72 mg/dL (7-18) H 11/16/17 06:00 Creatinine 10.0 mg/dL (0.55-1.02) H* 11/16/17 06:00 Creat Clearance w eGFR 3.98 (>60) 11/16/17 06:00 Calcium 8.4 mg/dL (8.5-10.1) L 11/16/17 06:00 Total Bilirubin 0.3 mg/dL (0.2-1.0) D 11/16/17 06:00 AST 20 U/L (15-37) 11/16/17 06:00 ALT 10 U/L (12-78) L 11/16/17 06:00 Alkaline Phosphatase 123 U/L (45-117) H 11/16/17 06:00 Total Protein 5.7 g/dl (6.4-8.2) L 11/16/17 06:00 Albumin 2.3 g/dl (3.4-5.0) L 11/16/17 06:00 - RADIOLOGY CT head reviewed X2 MRI brain reviewed Medical Decision Making 57 year old female with a significant PMH of hypertension and end stage renal disease (dialysis on Monday, , or Monday) who presents to the emergency department with headache, fatigue, and 1-2 episodes of emesis during dialysis. The noted the patient experiences headaches and fatigue after dialysis for the past three months that resolve on its own about 6 hours later. The patient reports the headaches are severe, throbbing, and localized at the frontal area. She completed CT head and MRI brain, showed meningioma for which underwent surgical intervention with Dr. Salazar. There was concern during dialysis that she was having jerking activity and possibly seizure like. EEG ordered, pending EEG result. Episodic event during HD maybe secondary to volume shifts and electrolyte changes. Has not occured again Fioricet started for tension headaches. Avoid mixing with tylenol and would not recommend giving both at the same time. Recommend using Fioricet before HD session instead of when headache starts, prophylactic dose may help Though seems headaches occuring regardless of treatment Continue to monitor mental status, CT head stable. Monitor blood pressure, maintain normotensive range. Now at baseline, consider short term rehab, discussed with family preservation caseworker.
[2017-11-17] MEDS ORDERED: PT OWN MED DRAWER 7, Y5N ONE (09:58)
[2017-11-17] MEDS: NIFEdipine E.R. 30 MG TABLET (FP) PO SCH (10:06)
--- NOTE | 2017-11-17 16:01 | PN ---
Progress Note (short form) - Note Progress Note: Renal follow up for ESRD on HD Pt seen and examined at the bedside no acute complaints pt tolerated dialysis up until the last 10 minutes of a 3 hour treatment no robin today no sob, chest pain Vital Signs Temperature 98.0 F 11/17/17 15:46 Pulse Rate 80 11/17/17 15:46 Respiratory Rate 18 11/17/17 15:46 Blood Pressure 139/72 11/17/17 15:46 O2 Sat by Pulse Oximetry (%) 100 11/16/17 21:00 Intake & Output 11/14/17 11/15/17 11/16/17 11/17/17 23:59 23:59 23:59 23:59 Intake Total 250 520 Balance 250 520 NAD awake and alert RRR CTA soft NT/ND No LE edema CBC, BMP 11/16/17 06:00 11/16/17 06:00 Current Medications Acetaminophen (Tylenol -) 650 mg PO Q4H PRN PRN Reason: PAIN LEVEL 4 - 6 Last Admin: 11/16/17 17:47 Dose: 650 mg Acetaminophen (Tylenol -) 650 mg PO Q6H PRN PRN Reason: FEVER >99.5 Acetaminophen/Butalbital/Caffeine (Fioricet -) 1 tablet PO Q24H PRN PRN Reason: HEADACHE Last Admin: 11/16/17 13:42 Dose: 1 tablet Heparin Sodium (Porcine) (Heparin -) 5,000 unit SQ TID [facility] Last Admin: 11/17/17 13:58 Dose: 5,000 unit Nifedipine (Procardia Xl -) 30 mg PO DAILY [facility] Last Admin: 11/17/17 10:06 Dose: 30 mg 57 year old woman with PMhx of ESRD on HD (TTS), Hypertension who presented with progressively worsening ROBIN and found to have a meningioma with mass effect. #Meningioma s/p resection CT head negative for any acute bleed Neurology and Neurosurgery following #ESRD on HD was able to tolerate HD yesterday with Fiorcet will continue HD tomorrow #Hypertension BP at goal on Nifedpine #CKD Anemia/Post surgical Anemia trend CBC s/p PRBC transfusion yesterday with dialysis Saurabh Lay DO
--- NOTE | 2017-11-17 18:38 | PN ---
Progress Note (short form) - Note Progress Note: Patient looked good today and tolerated most of her gentle schedule dialysis yesterday. Head CT shows no significant change. Hopefully she will become tolerant of the fluid shifts without significant headaches on HD. Wound is clean, dry and intact.
[2017-11-18] MEDS ORDERED: EPOETIN ALFA 10,000 UNIT/1 ML VIAL IVPUSH ONE (06:00)
[2017-11-18] MEDS: HEPARIN NA (PORCINE) 5,000 UNITS/ML 1ML VIAL SQ SCH ×3 (06:46→22:22)
[2017-11-18 07:36] LABS: BASO % 0.6 % (0-2.0); EOS % 3.7 % (0-4.5); HEMATOCRIT 26.4 % (32.4-45.2); HEMOGLOBIN 8.7 GM/dL (10.7-15.3); LYMPH % 26.1 % (8-40); MCH 32.4 pg (25.7-33.7); MCHC 33.1 g/dl (32.0-36.0); MEAN CELL VOLUME 97.9 fl (80-96); MEAN PLT VOLUME 7.8 fl (7.5-11.1); MONO % 9.4 % (3.8-10.2); NEUT % 60.2 % (42.8-82.8); PLATELET COUNT 240 K/MM3 (134-434); RBC 2.69 M/mm3 (3.60-5.2); RDW 13.6 % (11.6-15.6); WHITE BLOOD COUNT 6.7 K/mm3 (4.0-10.0)
[2017-11-18] MEDS: ACETAMINOPHEN/CAFFEINE/BUTALBITAL 1 TAB PO PRN (09:44)
[2017-11-18 10:12] LABS: ANION GAP 9 (8-16); BLOOD UREA NITROGEN 65 mg/dL (7-18); CHLORIDE 99 mmol/L (98-107); CO2 27 mmol/L (21-32); GLUCOSE,RANDOM 139 mg/dL (74-106); POTASSIUM 4.7 mmol/L (3.5-5.1); SODIUM 135 mmol/L (136-145)
[2017-11-18 10:24] LABS: CALCIUM 7.8 mg/dL (8.5-10.1)
--- NOTE | 2017-11-18 10:30 | PN ---
Progress Note (short form) - Note Progress Note: Renal follow up for ESRD on HD Pt seen and examined during dialysis BP stable, BF 300, Goal UF is 1.5-2L pt w/o any ROBIN at the present time will give Fiorcet now to prevent to reduce risk of developing ROBIN Vital Signs Temperature 98.0 F 11/18/17 08:40 Pulse Rate 71 11/18/17 09:16 Respiratory Rate 18 11/18/17 09:16 Blood Pressure 129/77 11/18/17 09:16 O2 Sat by Pulse Oximetry (%) 100 11/17/17 21:00 Intake & Output 11/15/17 11/16/17 11/17/17 11/18/17 23:59 23:59 23:59 23:59 Intake Total 620 220 Balance 620 220 NAD awake and alert RRR CTA soft NT/ND No LE edema CBC, BMP 11/18/17 06:00 11/18/17 08:50 Current Medications Acetaminophen (Tylenol -) 650 mg PO Q4H PRN PRN Reason: PAIN LEVEL 4 - 6 Last Admin: 11/16/17 17:47 Dose: 650 mg Acetaminophen (Tylenol -) 650 mg PO Q6H PRN PRN Reason: FEVER >99.5 Acetaminophen/Butalbital/Caffeine (Fioricet -) 1 tablet PO Q24H PRN PRN Reason: HEADACHE Last Admin: 11/18/17 09:44 Dose: 1 tablet Heparin Sodium (Porcine) (Heparin -) 5,000 unit SQ TID [facility] Last Admin: 11/18/17 06:46 Dose: 5,000 unit Nifedipine (Procardia Xl -) 30 mg PO DAILY [facility] Last Admin: 11/17/17 10:06 Dose: 30 mg 57 year old woman with PMhx of ESRD on HD (TTS), Hypertension who presented with progressively worsening ROBIN and found to have a meningioma with mass effect. #Meningioma s/p resection Neurosuergery following on Fioricet #ESRD on HD continue dialysis today with Fiorcet UF as tolerated #Hypertension BP at goal on Nifedpine #CKD Anemia/Post surgical Anemia trend CBC s/p PRBC transfusion will continue geno with dialysis Saurabh Lay DO
[2017-11-18 10:38] LABS: CREATININE 8.5 mg/dL (0.55-1.02)
[2017-11-18] MEDS: NIFEdipine E.R. 30 MG TABLET (FP) PO SCH (12:27)
--- NOTE | 2017-11-18 12:36 | PN ---
Progress Note, Physician History of Present Illness: ALERT BUT WEAK THIS AM - Current Medication List Current Medications: Active Medications Acetaminophen (Tylenol -) 650 mg PO Q4H PRN PRN Reason: PAIN LEVEL 4 - 6 Last Admin: 11/16/17 17:47 Dose: 650 mg Acetaminophen (Tylenol -) 650 mg PO Q6H PRN PRN Reason: FEVER >99.5 Acetaminophen/Butalbital/Caffeine (Fioricet -) 1 tablet PO Q24H PRN PRN Reason: HEADACHE Last Admin: 11/18/17 09:44 Dose: 1 tablet Heparin Sodium (Porcine) (Heparin -) 5,000 unit SQ TID [facility] Last Admin: 11/18/17 06:46 Dose: 5,000 unit Nifedipine (Procardia Xl -) 30 mg PO DAILY [facility] Last Admin: 11/18/17 12:27 Dose: 30 mg - Objective Vital Signs: Vital Signs Temperature 98.0 F 11/18/17 08:40 Pulse Rate 62 11/18/17 11:55 Respiratory Rate 18 11/18/17 11:55 Blood Pressure 143/74 11/18/17 11:55 O2 Sat by Pulse Oximetry (%) 100 11/17/17 21:00 Cardiovascular: Yes: Regular Rate and Rhythm Respiratory: Yes: Regular, CTA Bilaterally Gastrointestinal: Yes: Normal Bowel Sounds, Soft Neurological: Yes: Alert, Weakness Labs: CBC, BMP 11/18/17 06:00 INR, PTT INR 1.04 (0.82-1.09) 11/08/17 07:11 Problem List - Problems (1) Meningioma Code(s): D32.9 - BENIGN NEOPLASM OF MENINGES, UNSPECIFIED (2) ESRD (end stage renal disease) on dialysis Code(s): N18.6 - END STAGE RENAL DISEASE; Z99.2 - DEPENDENCE ON RENAL DIALYSIS (3) Near syncope Code(s): R55 - SYNCOPE AND COLLAPSE Assessment/Plan - Problems (1) ESRD (end stage renal disease) on dialysis Assessment/Plan: HD per renal Code(s): N18.6 - END STAGE RENAL DISEASE; Z99.2 - DEPENDENCE ON RENAL DIALYSIS (2) Meningioma Assessment/Plan: s/p craniotomy and resection of meningioma MAITE on board s/p BEKA drain pathology report shows menigioma pain control DVT ppx F/U CT Code(s): D32.9 - BENIGN NEOPLASM OF MENINGES, UNSPECIFIED (3) Near syncope Assessment/Plan: possible siezure activity s/p EEG neuro consult appreciated Code(s): R55 - SYNCOPE AND COLLAPSE (4) ANEMIA Assessment/Plan: PRBC WITH DIALYSIS
[2017-11-18 12:45] LABS: CREATININE 2.8 mg/dL (0.55-1.02)
[2017-11-19] MEDS: HEPARIN NA (PORCINE) 5,000 UNITS/ML 1ML VIAL SQ SCH ×3 (06:51→22:12)
--- NOTE | 2017-11-19 07:52 | PN ---
Progress Note, Physician History of Present Illness: ALERT BUT WEAK THIS AM - Current Medication List Current Medications: Active Medications Acetaminophen (Tylenol -) 650 mg PO Q4H PRN PRN Reason: PAIN LEVEL 4 - 6 Last Admin: 11/16/17 17:47 Dose: 650 mg Acetaminophen (Tylenol -) 650 mg PO Q6H PRN PRN Reason: FEVER >99.5 Acetaminophen/Butalbital/Caffeine (Fioricet -) 1 tablet PO Q24H PRN PRN Reason: HEADACHE Last Admin: 11/18/17 09:44 Dose: 1 tablet Heparin Sodium (Porcine) (Heparin -) 5,[address] [facility] Last Admin: 11/19/17 06:51 Dose: 5,000 unit Nifedipine (Procardia Xl -) [address] [facility] Last Admin: 11/18/17 12:27 Dose: 30 mg - Objective Vital Signs: Vital Signs Temperature 99.1 F 11/19/17 05:51 Pulse Rate 68 11/19/17 05:51 Respiratory Rate 20 11/19/17 05:51 Blood Pressure 134/73 11/19/17 05:51 O2 Sat by Pulse Oximetry (%) 99 11/18/17 21:00 Cardiovascular: Yes: S1, S2 Respiratory: Yes: Regular, CTA Bilaterally Gastrointestinal: Yes: Normal Bowel Sounds, Soft Neurological: Yes: Alert, Weakness Labs: CBC, BMP 11/18/17 06:00 11/18/17 11:45 INR, PTT INR 1.04 (0.82-1.09) 11/08/17 07:11 Problem List - Problems (1) Meningioma Code(s): D32.9 - BENIGN NEOPLASM OF MENINGES, UNSPECIFIED (2) ESRD (end stage renal disease) on dialysis Code(s): N18.6 - END STAGE RENAL DISEASE; Z99.2 - DEPENDENCE ON RENAL DIALYSIS (3) Near syncope Code(s): R55 - SYNCOPE AND COLLAPSE Assessment/Plan - Problems (1) ESRD (end stage renal disease) on dialysis Assessment/Plan: HD per renal Code(s): N18.6 - END STAGE RENAL DISEASE; Z99.2 - DEPENDENCE ON RENAL DIALYSIS (2) Meningioma Assessment/Plan: s/p craniotomy and resection of meningioma MAITE on board s/p BEKA drain pathology report shows menigioma pain control DVT ppx F/U CT Code(s): D32.9 - BENIGN NEOPLASM OF MENINGES, UNSPECIFIED (3) Near syncope Assessment/Plan: possible siezure activity s/p EEG neuro consult appreciated Code(s): R55 - SYNCOPE AND COLLAPSE (4) ANEMIA Assessment/Plan: PRBC WITH DIALYSIS
[2017-11-19] MEDS ORDERED: POLYETHYLENE GLYCOL 3350 119 GM BTL PO ONE (09:45)
--- NOTE | 2017-11-19 09:45 | PN ---
Progress Note (short form) - Note Progress Note: Renal follow up for ESRD on HD Pt seen and examined at the bedside awake and alert + constipation no ROBIN with dialysis yesterday Vital Signs Temperature 99.1 F 11/19/17 05:51 Pulse Rate 68 11/19/17 05:51 Respiratory Rate 20 11/19/17 05:51 Blood Pressure 134/73 11/19/17 05:51 O2 Sat by Pulse Oximetry (%) 99 11/18/17 21:00 Intake & Output 11/16/17 11/17/17 11/18/17 11/19/17 23:59 23:59 23:59 23:59 Intake Total 620 520 Balance 620 520 NAD awake and alert RRR CTA soft NT/ND No LE edema CBC, BMP 11/18/17 06:00 11/18/17 11:45 Current Medications Acetaminophen (Tylenol -) 650 mg PO Q4H PRN PRN Reason: PAIN LEVEL 4 - 6 Last Admin: 11/16/17 17:47 Dose: 650 mg Acetaminophen (Tylenol -) 650 mg PO Q6H PRN PRN Reason: FEVER >99.5 Acetaminophen/Butalbital/Caffeine (Fioricet -) 1 tablet PO Q24H PRN PRN Reason: HEADACHE Last Admin: 11/18/17 09:44 Dose: 1 tablet Heparin Sodium (Porcine) (Heparin -) 5,000 unit SQ TID [facility] Last Admin: 11/19/17 06:51 Dose: 5,000 unit Nifedipine (Procardia Xl -) 30 mg PO DAILY [facility] Last Admin: 11/18/17 12:27 Dose: 30 mg 57 year old woman with PMhx of ESRD on HD (TTS), Hypertension who presented with progressively worsening ROBIN and found to have a meningioma with mass effect. #Meningioma s/p resection Neurosuergery following on Fioricet for ROBIN's #ESRD on HD tolerated dialysis w/o headache yesterday no acute indication for dialysis today #Hypertension BP at goal on Nifedpine #CKD Anemia/Post surgical Anemia Hgb improved s/p transfusion will continue MORENO with HD Saurabh Lay DO
[2017-11-19] MEDS: NIFEdipine E.R. 30 MG TABLET (FP) PO SCH (10:25)
--- NOTE | 2017-11-19 12:45 | PN ---
Progress Note (short form) - Note Progress Note: Patient is a awake and alert in a chair. No complaints. Patient tolerating dialysis better and better as time passes. Apparently, soon after I left her room, she became vasovagal while having a bowel movement and needed to be helped back to bed where she gradually recovered. I feel that this supports the sentiments that she would benefit from discharge to an assisted/monitored setting such as SNF/Rehabiliation. From a pure surgical standpoint, she is ready for discharge. Hopefully she will continue to improve in her other health concerns and be ready for discharge soon. Discussed that I will be away for several days starting tomorrow and that I will follow her progress remotely and discuss with Dr. Paredes. No acute need for Neurosurgical Intervention anticipated. Her skin clips can be removed the week of November 27. If she is in Rehabilitation, the treating physician should contact our office to coordinate, otherwise, I will see her in the office to remove them myself.
[2017-11-20] MEDS: HEPARIN NA (PORCINE) 5,000 UNITS/ML 1ML VIAL SQ SCH ×3 (06:00→22:36)
[2017-11-20 07:56] LABS: BASO % 0.4 % (0-2.0); HEMATOCRIT 27.1 % (32.4-45.2); LYMPH % 30.7 % (8-40); MCH 33.2 pg (25.7-33.7); MCHC 33.4 g/dl (32.0-36.0); MEAN CELL VOLUME 99.3 fl (80-96); MEAN PLT VOLUME 7.7 fl (7.5-11.1); MONO % 9.6 % (3.8-10.2); NEUT % 56.3 % (42.8-82.8); PLATELET COUNT 259 K/MM3 (134-434); RBC 2.73 M/mm3 (3.60-5.2); RDW 13.8 % (11.6-15.6); WHITE BLOOD COUNT 7.4 K/mm3 (4.0-10.0)
[2017-11-20 08:20] LABS: ALBUMIN 2.3 g/dl (3.4-5.0); ANION GAP 10 (8-16); BLOOD UREA NITROGEN 52 mg/dL (7-18); CALCIUM 8.1 mg/dL (8.5-10.1); CHLORIDE 97 mmol/L (98-107); CO2 30 mmol/L (21-32); GLUCOSE,RANDOM 89 mg/dL (74-106); SODIUM 137 mmol/L (136-145)
[2017-11-20 08:31] LABS: ALK PHOS 126 U/L (45-117); BILIRUBIN,TOTAL 0.4 mg/dL (0.2-1.0); SGOT/AST 42 U/L (15-37); SGPT/ALT 32 U/L (12-78); TOT PROT 5.3 g/dl (6.4-8.2)
[2017-11-20 08:48] LABS: CREATININE 8.6 mg/dL (0.55-1.02)
[2017-11-20] MEDS: NIFEdipine E.R. 30 MG TABLET (FP) PO SCH (09:40)
--- NOTE | 2017-11-20 09:58 | PN ---
Progress Note (short form) - Note Progress Note: Neurology History of Present Illness The patient is a 57 year old female with a significant PMH of hypertension and end stage renal disease (dialysis on Monday, , or Monday) who presented to the emergency department with headache, fatigue, and 1-2 episodes of emesis during dialysis. The noted the patient experiences headaches and fatigue after dialysis for the past three months that resolve on its own about 6 hours later. The patient reports the headaches are severe, throbbing, and localized at the frontal area. She completed CT head and MRI brain, showed meningioma for which underwent surgical intervention with Dr. Salazar. There was concern during dialysis that she was having jerking activity and possibly seizure like.CT head repeated on 11/17, no acute changes. Patient more interactive today and again could tell me name, location, date, name of President. EEG reviewed and normal. Also reviewed Dr. Salazar note, patient stable. Active Medications Acetaminophen (Tylenol -) 650 mg PO Q4H PRN PRN Reason: PAIN LEVEL 4 - 6 Last Admin: 11/16/17 17:47 Dose: 650 mg Acetaminophen (Tylenol -) 650 mg PO Q6H PRN PRN Reason: FEVER >99.5 Heparin Sodium (Porcine) (Heparin -) 5,000 unit SQ TID [facility] Last Admin: 11/20/17 06:00 Dose: 5,000 unit Nifedipine (Procardia Xl -) 30 mg PO DAILY [facility] Last Admin: 11/20/17 09:40 Dose: 30 mg *Physical Exam Vital Signs Temperature 98.6 F 11/20/17 06:31 Pulse Rate 67 11/20/17 06:31 Respiratory Rate 20 11/20/17 06:31 Blood Pressure 136/80 11/20/17 06:31 O2 Sat by Pulse Oximetry (%) 98 11/19/17 21:00 GENERAL: (+) Fatigued but arousable to answer question. The patient is awake, alert, in no acute distress. HEAD: Normal with no signs of trauma. EYES: Pupils equal, round and reactive to light, extraocular movements intact, sclera anicteric, conjunctiva clear with no pallor. ENT: Ears normal, nares patent, oropharynx clear without exudates. Moist mucous membranes. NECK: Normal range of motion, supple without lymphadenopathy, JVD, or masses. LUNGS: Breath sounds equal, clear to auscultation bilaterally. No wheeze/ crackles. HEART: Regular rate and rhythm, normal S1 and S2 without murmur or rub. ABDOMEN: Soft/nontender/nondistended. BS wnl. No guarding or rebound. No palpable masses. No hepatosplenomegaly. EXTREMITIES: (+) Left AV fistula, palpable thrill. Normal range of motion, no edema. No clubbing or cyanosis. No cords, erythema, or tenderness. NEUROLOGICAL: Cranial nerves intact, no slurred speech, moves all extremtities grossly, sensory intact to LT, limited confrontation testing, gait deferred PSYCH: Normal mood, normal affect. SKIN: Warm, Dry, normal turgor, no rashes or lesions noted. CBCD WBC 7.4 K/mm3 (4.0-10.0) 11/20/17 06:30 RBC 2.73 M/mm3 (3.60-5.2) L 11/20/17 06:30 Hgb 9.0 GM/dL (10.7-15.3) L 11/20/17 06:30 Hct 27.1 % (32.4-45.2) L 11/20/17 06:30 MCV 99.3 fl (80-96) H 11/20/17 06:30 MCHC 33.4 g/dl (32.0-36.0) 11/20/17 06:30 RDW 13.8 % (11.6-15.6) 11/20/17 06:30 Plt Count 259 K/MM3 (134-434) 11/20/17 06:30 MPV 7.7 fl (7.5-11.1) 11/20/17 06:30 CMP Sodium 137 mmol/L (136-145) 11/20/17 06:30 Potassium 5.0 mmol/L (3.5-5.1) 11/20/17 06:30 Chloride 97 mmol/L (98-107) L 11/20/17 06:30 Carbon Dioxide 30 mmol/L (21-32) 11/20/17 06:30 Anion Gap 10 (8-16) 11/20/17 06:30 BUN 52 mg/dL (7-18) H D 11/20/17 06:30 Creatinine 8.6 mg/dL (0.55-1.02) H* 11/20/17 06:30 Creat Clearance w eGFR 4.74 (>60) 11/20/17 06:30 Calcium 8.1 mg/dL (8.5-10.1) L 11/20/17 06:30 Total Bilirubin 0.4 mg/dL (0.2-1.0) D 11/20/17 06:30 AST 42 U/L (15-37) H 11/20/17 06:30 ALT 32 U/L (12-78) 11/20/17 06:30 Alkaline Phosphatase 126 U/L (45-117) H 11/20/17 06:30 Total Protein 5.3 g/dl (6.4-8.2) L 11/20/17 06:30 Albumin 2.3 g/dl (3.4-5.0) L 11/20/17 06:30 - RADIOLOGY CT head reviewed X3 MRI brain reviewed Medical Decision Making 57 year old female with a significant PMH of hypertension and end stage renal disease (dialysis on Monday, , or Monday) who presents to the emergency department with headache, fatigue, and 1-2 episodes of emesis during dialysis. The noted the patient experiences headaches and fatigue after dialysis for the past three months that resolve on its own about 6 hours later. The patient reports the headaches are severe, throbbing, and localized at the frontal area. She completed CT head and MRI brain, showed meningioma for which underwent surgical intervention with Dr. Salazar. There was concern during dialysis that she was having jerking activity and possibly seizure like. EEG ordered, pending EEG result. Episodic event during HD maybe secondary to volume shifts and electrolyte changes. Has not occured again Fioricet started for tension headaches. Avoid mixing with tylenol and would not recommend giving both at the same time. Recommend using Fioricet before HD session instead of when headache starts, prophylactic dose may help Though seems headaches occuring regardless of treatment Continue to monitor mental status, CT head stable EEG reviewed, within normal limits Dr. Salazar, NSGY note reviewed Monitor blood pressure, maintain normotensive range. Now at baseline, consider short term rehab
--- NOTE | 2017-11-20 11:59 | DS ---
Physical Examination Vital Signs: Vital Signs Temperature 98.3 F 11/20/17 10:00 Pulse Rate 72 11/20/17 10:00 Respiratory Rate 20 11/20/17 10:00 Blood Pressure 135/79 11/20/17 10:00 O2 Sat by Pulse Oximetry (%) 98 11/20/17 09:00 Constitutional: Yes: Well Nourished, No Distress, Calm Cardiovascular: Yes: Regular Rate and Rhythm Respiratory: Yes: Regular Gastrointestinal: Yes: Normal Bowel Sounds Musculoskeletal: Yes: WNL Extremities: Yes: WNL Edema: No Peripheral Pulses WNL: Yes Wound/Incision: Yes: Dressing Dry and Intact Neurological: Yes: Alert, Oriented Psychiatric: Yes: Alert, Oriented Labs: CBC, BMP 11/20/17 06:30 11/20/17 06:30 Discharge Summary Reason For Visit: MENINGIOMA Current Active Problems ESRD (end stage renal disease) on dialysis (Acute) Meningioma (Acute) Near syncope (Acute) S/P craniotomy (Acute) Hospital Course: 57 year old female with a significant PMH of hypertension and end stage renal disease (dialysis on Monday, , or Monday) who presents to the emergency department with headache, fatigue, and 1-2 episodes of emesis during dialysis. The is at bedside and providing most of the history. The notes the patient experiences headaches and fatigue after dialysis for the past three months that resolve on its own about 6 hours later. The patient reports the headaches are severe, throbbing, and localized at the frontal area. The notes the 1-2 episodes of non bloody, non bilious vomit during dialysis today has not occurred before prompting their visit to the ER today. The states the patient was in her normal state of health this morning. At baseline, the patient reports she is constipated for 4-5 days. The reports the patient has been going to [facility] for dialysis for the past 5 years and states the left AV fistula was changed over a year ago. The patient denies LOC, chest pain, shortness of breath, and dizziness. Denies fever, chills, and diarrhea. Condition: Stable - Instructions Diet, Activity, Other Instructions: Dr. Stauffer Discharge Instructions Dear ALBERTO ALEX, Post Operative Instructions Physical activity Resume your normal everyday activity as tolerated no heavy lifting or exercise until seen by your surgeon. You may walk unlimited amounts of and climb stairs. You may resume driving the car once cleared by your surgeon. Wound care Keep incision clean and dry. janes will be removed by your surgeon in the office. Diet There are no dietary restrictions. Eat healthy, high-fiber foods. Drink 6 to 8 glasses of liquid each day. This will assist in keeping your bowels are regular. Pain management You may take Tylenol or acetaminophen. Any pain prescription medication ordered should be taken as prescribed for moderate to severe pain. Call Dr. Stauffer for any of the following: Severe pain not relieved by medication Fever of 101 or higher Excessive bleeding or drainage on dressing Changes in mental status, new pain or weakness in extremities Call the office for a post operative appointment once you return home from the hospital. Fiorecet to be given prior to Hemodialysis. Do not take Fiorecet and tylenol at the same time. Surgical clips to be removed week for Nov 27. Rehab Physician to coordinate with Dr Stauffer. Referrals: Anna Carbajal [Primary Care Provider] - Disposition: HALFWAY FACILITY - Home Medications Comprehensive Discharge Medication List: Ambulatory Orders Acetaminophen [Pain Relief] 650 mg PO PRN 11/07/17 Clonidine HCl 0.1 mg PO PRN 11/07/17 Nitroglycerin 0.4 mg SL PRN 11/07/17 Carvedilol [Coreg -] 3.125 mg PO BID 11/12/17 Sevelamer Carbonate [Renvela] 1,600 mg PO TIDCM 11/12/17 Vit B Comp No.3/Folic/C/Biotin [[facility] Rx Tablet] 1 tab PO DAILY 11/12/17
--- NOTE | 2017-11-20 16:59 | PN ---
Progress Note (short form) - Note Progress Note: Renal follow up for ESRD on HD Pt seen and examined at the bedside no acute complaints no ROBIN today or monday during dialysis no sob, chest pain Vital Signs Temperature 98.4 F 11/20/17 15:48 Pulse Rate 71 11/20/17 15:48 Respiratory Rate 18 11/20/17 15:48 Blood Pressure 129/73 11/20/17 15:48 O2 Sat by Pulse Oximetry (%) 98 11/20/17 09:00 Intake & Output 11/17/17 11/18/17 11/19/17 11/20/17 23:59 23:59 23:59 23:59 Intake Total 620 520 700 950 Balance 620 520 700 950 NAD awake and alert RRR CTA soft NT/ND No LE edema CBC, BMP 11/20/17 06:30 11/20/17 06:30 Current Medications Acetaminophen (Tylenol -) 650 mg PO Q4H PRN PRN Reason: PAIN LEVEL 4 - 6 Last Admin: 11/16/17 17:47 Dose: 650 mg Acetaminophen (Tylenol -) 650 mg PO Q6H PRN PRN Reason: FEVER >99.5 Heparin Sodium (Porcine) (Heparin -) 5,000 unit SQ TID [facility] Last Admin: 11/20/17 14:03 Dose: 5,000 unit Nifedipine (Procardia Xl -) 30 mg PO DAILY [facility] Last Admin: 11/20/17 09:40 Dose: 30 mg 57 year old woman with PMhx of ESRD on HD (TTS), Hypertension who presented with progressively worsening ROBIN and found to have a meningioma with mass effect. #Meningioma s/p resection Neurosuergery following on Fioricet for ROBIN's #ESRD on HD no acute indication for dialysis today next dialysis planned for tomorrow #Hypertension BP at goal on Nifedpine #CKD Anemia/Post surgical Anemia Hgb improved s/p transfusion will continue MORENO with HD discharge planning per primary Saurabh Lay DO
[2017-11-21] MEDS: HEPARIN NA (PORCINE) 5,000 UNITS/ML 1ML VIAL SQ SCH (05:55)
--- NOTE | 2017-11-21 09:44 | PN ---
Progress Note (short form) - Note Progress Note: Neurology History of Present Illness The patient is a 57 year old female with a significant PMH of hypertension and end stage renal disease (dialysis on Monday, , or Monday) who presented to the emergency department with headache, fatigue, and 1-2 episodes of emesis during dialysis. The noted the patient experiences headaches and fatigue after dialysis for the past three months that resolve on its own about 6 hours later. The patient reports the headaches are severe, throbbing, and localized at the frontal area. She completed CT head and MRI brain, showed meningioma for which underwent surgical intervention with Dr. Salazar. There was concern during dialysis that she was having jerking activity and possibly seizure like.CT head repeated on 11/17, no acute changes. Patient more interactive today and again could tell me name, location, date, name of President. EEG reviewed and normal. She remains stable and well appearing. Active Medications Acetaminophen (Tylenol -) 650 mg PO Q4H PRN PRN Reason: PAIN LEVEL 4 - 6 Last Admin: 11/16/17 17:47 Dose: 650 mg Acetaminophen (Tylenol -) 650 mg PO Q6H PRN PRN Reason: FEVER >99.5 Epoetin Smith (Epogen -) 10,000 unit IVPUSH ONCE ONE Stop: 11/21/17 09:38 Nifedipine (Procardia Xl -) 30 mg PO DAILY [facility] Last Admin: 11/20/17 09:40 Dose: 30 mg *Physical Exam Vital Signs Temperature 98.5 F 11/21/17 06:58 Pulse Rate 61 11/21/17 06:58 Respiratory Rate 20 11/21/17 06:58 Blood Pressure 124/72 11/21/17 06:58 O2 Sat by Pulse Oximetry (%) 97 11/20/17 21:00 GENERAL: (+) Fatigued but arousable to answer question. The patient is awake, alert, in no acute distress. HEAD: Normal with no signs of trauma. EYES: Pupils equal, round and reactive to light, extraocular movements intact, sclera anicteric, conjunctiva clear with no pallor. ENT: Ears normal, nares patent, oropharynx clear without exudates. Moist mucous membranes. NECK: Normal range of motion, supple without lymphadenopathy, JVD, or masses. LUNGS: Breath sounds equal, clear to auscultation bilaterally. No wheeze/ crackles. HEART: Regular rate and rhythm, normal S1 and S2 without murmur or rub. ABDOMEN: Soft/nontender/nondistended. BS wnl. No guarding or rebound. No palpable masses. No hepatosplenomegaly. EXTREMITIES: (+) Left AV fistula, palpable thrill. Normal range of motion, no edema. No clubbing or cyanosis. No cords, erythema, or tenderness. NEUROLOGICAL: Cranial nerves intact, no slurred speech, moves all extremtities grossly, sensory intact to LT, limited confrontation testing, gait deferred PSYCH: Normal mood, normal affect. SKIN: Warm, Dry, normal turgor, no rashes or lesions noted. CBCD WBC 7.4 K/mm3 (4.0-10.0) 11/20/17 06:30 RBC 2.73 M/mm3 (3.60-5.2) L 11/20/17 06:30 Hgb 9.0 GM/dL (10.7-15.3) L 11/20/17 06:30 Hct 27.1 % (32.4-45.2) L 11/20/17 06:30 MCV 99.3 fl (80-96) H 11/20/17 06:30 MCHC 33.4 g/dl (32.0-36.0) 11/20/17 06:30 RDW 13.8 % (11.6-15.6) 11/20/17 06:30 Plt Count 259 K/MM3 (134-434) 11/20/17 06:30 MPV 7.7 fl (7.5-11.1) 11/20/17 06:30 CMP Sodium 137 mmol/L (136-145) 11/20/17 06:30 Potassium 5.0 mmol/L (3.5-5.1) 11/20/17 06:30 Chloride 97 mmol/L (98-107) L 11/20/17 06:30 Carbon Dioxide 30 mmol/L (21-32) 11/20/17 06:30 Anion Gap 10 (8-16) 11/20/17 06:30 BUN 52 mg/dL (7-18) H D 11/20/17 06:30 Creatinine 8.6 mg/dL (0.55-1.02) H* 11/20/17 06:30 Creat Clearance w eGFR 4.74 (>60) 11/20/17 06:30 Calcium 8.1 mg/dL (8.5-10.1) L 11/20/17 06:30 Total Bilirubin 0.4 mg/dL (0.2-1.0) D 11/20/17 06:30 AST 42 U/L (15-37) H 11/20/17 06:30 ALT 32 U/L (12-78) 11/20/17 06:30 Alkaline Phosphatase 126 U/L (45-117) H 11/20/17 06:30 Total Protein 5.3 g/dl (6.4-8.2) L 11/20/17 06:30 Albumin 2.3 g/dl (3.4-5.0) L 11/20/17 06:30 - RADIOLOGY CT head reviewed X3 MRI brain reviewed Medical Decision Making 57 year old female with a significant PMH of hypertension and end stage renal disease (dialysis on Monday, , or Monday) who presents to the emergency department with headache, fatigue, and 1-2 episodes of emesis during dialysis. The noted the patient experiences headaches and fatigue after dialysis for the past three months that resolve on its own about 6 hours later. The patient reports the headaches are severe, throbbing, and localized at the frontal area. She completed CT head and MRI brain, showed meningioma for which underwent surgical intervention with Dr. Salazar. There was concern during dialysis that she was having jerking activity and possibly seizure like. EEG ordered, pending EEG result. Episodic event during HD maybe secondary to volume shifts and electrolyte changes. Has not occured again Fioricet started for tension headaches. Avoid mixing with tylenol and would not recommend giving both at the same time. Recommend using Fioricet before HD session instead of when headache starts, prophylactic dose may help Though seems headaches occuring regardless of treatment Continue to monitor mental status, CT head stable EEG reviewed, within normal limits Dr. Salazar, NSGY note reviewed Monitor blood pressure, maintain normotensive range. Now at baseline, consider short term rehab
[2017-11-21] MEDS ORDERED: EPOETIN ALFA 10,000 UNIT/1 ML VIAL IVPUSH ONE (10:15)
[2017-11-21] MEDS ORDERED: ACETAMINOPHEN/CAFFEINE/BUTALBITAL 1 TAB PO PRN (10:39)
--- NOTE | 2017-11-21 10:47 | PN ---
Progress Note, Physician Chief Complaint: Craniotomy History of Present Illness: nAD, in bed going for dialysis today and then to [facility] - Current Medication List Current Medications: Active Medications Acetaminophen (Tylenol -) 650 mg PO Q4H PRN PRN Reason: PAIN LEVEL 4 - 6 Last Admin: 11/16/17 17:47 Dose: 650 mg Acetaminophen (Tylenol -) 650 mg PO Q6H PRN PRN Reason: FEVER >99.5 Acetaminophen/Butalbital/Caffeine (Fioricet -) 1 tablet PO ASDIR PRN PRN Reason: HEADACHE Nifedipine (Procardia Xl -) 30 mg PO DAILY [facility] Last Admin: 11/20/17 09:40 Dose: 30 mg - Objective Vital Signs: Vital Signs Temperature 98.5 F 11/21/17 06:58 Pulse Rate 61 11/21/17 06:58 Respiratory Rate 20 11/21/17 06:58 Blood Pressure 124/72 11/21/17 06:58 O2 Sat by Pulse Oximetry (%) 97 11/20/17 21:00 Constitutional: Yes: Well Nourished, No Distress, Calm Cardiovascular: Yes: Regular Rate and Rhythm Respiratory: Yes: Regular Gastrointestinal: Yes: Normal Bowel Sounds, Soft Musculoskeletal: Yes: WNL Extremities: Yes: WNL Neurological: Yes: Alert, Oriented Psychiatric: Yes: Alert, Oriented Labs: CBC, BMP 11/20/17 06:30 11/20/17 06:30 INR, PTT INR 1.04 (0.82-1.09) 11/08/17 07:11 Problem List - Problems (1) S/P craniotomy Assessment/Plan: -seen by Neurosurgery -CT head unremarkable Code(s): Z98.890 - OTHER SPECIFIED POSTPROCEDURAL STATES (2) ESRD (end stage renal disease) on dialysis Assessment/Plan: Dialysis today Code(s): N18.6 - END STAGE RENAL DISEASE; Z99.2 - DEPENDENCE ON RENAL DIALYSIS (3) Meningioma Code(s): D32.9 - BENIGN NEOPLASM OF MENINGES, UNSPECIFIED (4) Near syncope Assessment/Plan: -improved Code(s): R55 - SYNCOPE AND COLLAPSE Assessment/Plan see problem list
[2017-11-21 11:13] LABS: HEMATOCRIT 27.8 % (32.4-45.2); HEMOGLOBIN 9.2 GM/dL (10.7-15.3); MCH 32.7 pg (25.7-33.7); MEAN CELL VOLUME 99.1 fl (80-96); MEAN PLT VOLUME 7.7 fl (7.5-11.1); PLATELET COUNT 282 K/MM3 (134-434); RDW 14.3 % (11.6-15.6); WHITE BLOOD COUNT 7.2 K/mm3 (4.0-10.0)
[2017-11-21 11:38] LABS: ANION GAP 13 (8-16); BLOOD UREA NITROGEN 80 mg/dL (7-18); CALCIUM 7.6 mg/dL (8.5-10.1); CHLORIDE 99 mmol/L (98-107); CO2 23 mmol/L (21-32); GLUCOSE,RANDOM 139 mg/dL (74-106); POTASSIUM 5.2 mmol/L (3.5-5.1); SODIUM 135 mmol/L (136-145)
[2017-11-21 11:45] LABS: CREATININE 10.6 mg/dL (0.55-1.02)
[2017-11-21] MEDS ORDERED: PT OWN MED DRAWER 7, Y5N ONE (14:39)
[2017-11-21] MEDS: NIFEdipine E.R. 30 MG TABLET (FP) PO SCH (15:00)
--- NOTE | 2017-11-21 15:47 | PN ---
Progress Note (short form) - Note Progress Note: Renal follow up for ESRD on HD Pt seen and examined during dialysis pt without any complaints, no ROBIN now pt is tolerating HD well BP 140/90 BF is 350, goal UF is 2L Vital Signs Temperature 98.1 F 11/21/17 15:13 Pulse Rate 77 11/21/17 15:13 Respiratory Rate 20 11/21/17 15:13 Blood Pressure 134/84 11/21/17 15:13 O2 Sat by Pulse Oximetry (%) 97 11/21/17 09:00 NAD, clean dressing on head RRR CTA no LE edema CBC, BMP 11/21/17 10:30 11/21/17 10:30 Current Medications Acetaminophen (Tylenol -) 650 mg PO Q4H PRN PRN Reason: PAIN LEVEL 4 - 6 Last Admin: 11/16/17 17:47 Dose: 650 mg Acetaminophen (Tylenol -) 650 mg PO Q6H PRN PRN Reason: FEVER >99.5 Acetaminophen/Butalbital/Caffeine (Fioricet -) 1 tablet PO TuThSa PRN PRN Reason: HEADACHE Last Admin: 11/21/17 11:01 Dose: 1 tablet Nifedipine (Procardia Xl -) 30 mg PO DAILY [facility] Last Admin: 11/21/17 15:00 Dose: 30 mg 57 year old woman with PMhx of ESRD on HD (TTS), Hypertension who presented with progressively worsening ROBIN and found to have a meningioma with mass effect. #Meningioma s/p resection Neurosuergery following on Fioricet for ROBIN's #ESRD on HD tolerating dialysis well will continue ROBIN prophylaxis with Fioricent as outpatient #Hypertension BP at goal on Nifedpine #CKD Anemia/Post surgical Anemia Hgb improved s/p transfusion will continue MORENO with HD = Saurabh Lay DO
[2017-11-21] MEDS: ACETAMINOPHEN 325 MG TABLET (FP) PO PRN (18:57)
[2017-11-22] MEDS: NIFEdipine E.R. 30 MG TABLET (FP) PO SCH (09:39)
--- NOTE | 2017-11-22 09:45 | PN ---
Progress Note (short form) - Note Progress Note: Neurology History of Present Illness The patient is a 57 year old female with a significant PMH of hypertension and end stage renal disease (dialysis on Monday, , or Monday) who presented to the emergency department with headache, fatigue, and 1-2 episodes of emesis during dialysis. The noted the patient experiences headaches and fatigue after dialysis for the past three months that resolve on its own about 6 hours later. The patient reports the headaches are severe, throbbing, and localized at the frontal area. She completed CT head and MRI brain, showed meningioma for which underwent surgical intervention with Dr. Salazar. There was concern during dialysis that she was having jerking activity and possibly seizure like.CT head repeated on 11/17, no acute changes. Patient more interactive since and again can tell me name, location, date, name of President. EEG reviewed and normal. She remains stable and well appearing. Active Medications Acetaminophen (Tylenol -) 650 mg PO Q4H PRN PRN Reason: PAIN LEVEL 4 - 6 Last Admin: 11/21/17 18:57 Dose: 650 mg Acetaminophen (Tylenol -) 650 mg PO Q6H PRN PRN Reason: FEVER >99.5 Acetaminophen/Butalbital/Caffeine (Fioricet -) 1 tablet PO TuThSa PRN PRN Reason: HEADACHE Last Admin: 11/21/17 11:01 Dose: 1 tablet Nifedipine (Procardia Xl -) 30 mg PO DAILY ILEANA Last Admin: 11/22/17 09:39 Dose: 30 mg *Physical Exam Vital Signs Temperature 98.4 F 11/21/17 16:30 Pulse Rate 70 11/21/17 16:30 Respiratory Rate 18 11/21/17 21:00 Blood Pressure 140/70 11/21/17 16:30 O2 Sat by Pulse Oximetry (%) 97 11/21/17 21:00 GENERAL: (+) Fatigued but arousable to answer question. The patient is awake, alert, in no acute distress. HEAD: Normal with no signs of trauma. EYES: Pupils equal, round and reactive to light, extraocular movements intact, sclera anicteric, conjunctiva clear with no pallor. ENT: Ears normal, nares patent, oropharynx clear without exudates. Moist mucous membranes. NECK: Normal range of motion, supple without lymphadenopathy, JVD, or masses. LUNGS: Breath sounds equal, clear to auscultation bilaterally. No wheeze/ crackles. HEART: Regular rate and rhythm, normal S1 and S2 without murmur or rub. ABDOMEN: Soft/nontender/nondistended. BS wnl. No guarding or rebound. No palpable masses. No hepatosplenomegaly. EXTREMITIES: (+) Left AV fistula, palpable thrill. Normal range of motion, no edema. No clubbing or cyanosis. No cords, erythema, or tenderness. NEUROLOGICAL: Cranial nerves intact, no slurred speech, moves all extremtities grossly, sensory intact to LT, limited confrontation testing, gait deferred PSYCH: Normal mood, normal affect. SKIN: Warm, Dry, normal turgor, no rashes or lesions noted. CBCD WBC 7.2 K/mm3 (4.0-10.0) 11/21/17 10:30 RBC 2.80 M/mm3 (3.60-5.2) L 11/21/17 10:30 Hgb 9.2 GM/dL (10.7-15.3) L 11/21/17 10:30 Hct 27.8 % (32.4-45.2) L 11/21/17 10:30 MCV 99.1 fl (80-96) H 11/21/17 10:30 MCHC 33.0 g/dl (32.0-36.0) 11/21/17 10:30 RDW 14.3 % (11.6-15.6) 11/21/17 10:30 Plt Count 282 K/MM3 (134-434) 11/21/17 10:30 MPV 7.7 fl (7.5-11.1) 11/21/17 10:30 CMP Sodium 135 mmol/L (136-145) L 11/21/17 10:30 Potassium 5.2 mmol/L (3.5-5.1) H 11/21/17 10:30 Chloride 99 mmol/L (98-107) 11/21/17 10:30 Carbon Dioxide 23 mmol/L (21-32) 11/21/17 10:30 Anion Gap 13 (8-16) 11/21/17 10:30 BUN 80 mg/dL (7-18) H D 11/21/17 10:30 Creatinine 10.6 mg/dL (0.55-1.02) H* 11/21/17 10:30 Creat Clearance w eGFR 4.74 (>60) 11/20/17 06:30 Calcium 7.6 mg/dL (8.5-10.1) L 11/21/17 10:30 Total Bilirubin 0.4 mg/dL (0.2-1.0) D 11/20/17 06:30 AST 42 U/L (15-37) H 11/20/17 06:30 ALT 32 U/L (12-78) 11/20/17 06:30 Alkaline Phosphatase 126 U/L (45-117) H 11/20/17 06:30 Total Protein 5.3 g/dl (6.4-8.2) L 11/20/17 06:30 Albumin 2.3 g/dl (3.4-5.0) L 11/20/17 06:30 - RADIOLOGY CT head reviewed X3 MRI brain reviewed Medical Decision Making 57 year old female with a significant PMH of hypertension and end stage renal disease (dialysis on Monday, , or Monday) who presents to the emergency department with headache, fatigue, and 1-2 episodes of emesis during dialysis. The noted the patient experiences headaches and fatigue after dialysis for the past three months that resolve on its own about 6 hours later. The patient reports the headaches are severe, throbbing, and localized at the frontal area. She completed CT head and MRI brain, showed meningioma for which underwent surgical intervention with Dr. Salazar. There was concern during dialysis that she was having jerking activity and possibly seizure like. EEG ordered, pending EEG result. Episodic event during HD maybe secondary to volume shifts and electrolyte changes. Has not occured again Fioricet started for tension headaches. Avoid mixing with tylenol and would not recommend giving both at the same time. Recommend using Fioricet before HD session instead of when headache starts, prophylactic dose may help Though seems headaches occuring regardless of treatment Continue to monitor mental status, CT head stable EEG reviewed, within normal limits Monitor blood pressure, maintain normotensive range. Plan is for short term rehab Neurologically stable at this time
--- NOTE | 2017-11-22 11:18 | PN ---
Progress Note, Physician Chief Complaint: Craniotomy History of Present Illness: NAD, in bed Awaiting discharge - Current Medication List Current Medications: Active Medications Acetaminophen (Tylenol -) 650 mg PO Q4H PRN PRN Reason: PAIN LEVEL 4 - 6 Last Admin: 11/21/17 18:57 Dose: 650 mg Acetaminophen (Tylenol -) 650 mg PO Q6H PRN PRN Reason: FEVER >99.5 Acetaminophen/Butalbital/Caffeine (Fioricet -) 1 tablet PO TuThSa PRN PRN Reason: HEADACHE Last Admin: 11/21/17 11:01 Dose: 1 tablet Nifedipine (Procardia Xl -) 30 mg PO DAILY ILEANA Last Admin: 11/22/17 09:39 Dose: 30 mg - Objective Vital Signs: Vital Signs Temperature 98.7 F 11/22/17 10:00 Pulse Rate 65 11/22/17 10:00 Respiratory Rate 18 11/22/17 10:00 Blood Pressure 130/74 11/22/17 10:00 O2 Sat by Pulse Oximetry (%) 96 11/22/17 09:00 Constitutional: Yes: Well Nourished, No Distress, Calm Respiratory: Yes: Regular Gastrointestinal: Yes: Normal Bowel Sounds Musculoskeletal: Yes: WNL Extremities: Yes: WNL Edema: No Peripheral Pulses WNL: Yes Neurological: Yes: Alert, Oriented Psychiatric: Yes: Alert, Oriented Labs: CBC, BMP 11/21/17 10:30 11/21/17 10:30 INR, PTT INR 1.04 (0.82-1.09) 11/08/17 07:11 Problem List - Problems (1) S/P craniotomy Assessment/Plan: -seen by Neurosurgery -CT head unremarkable Code(s): Z98.890 - OTHER SPECIFIED POSTPROCEDURAL STATES (2) ESRD (end stage renal disease) on dialysis Assessment/Plan: Dialysis yesterday Code(s): N18.6 - END STAGE RENAL DISEASE; Z99.2 - DEPENDENCE ON RENAL DIALYSIS (3) Meningioma Code(s): D32.9 - BENIGN NEOPLASM OF MENINGES, UNSPECIFIED (4) Near syncope Assessment/Plan: -improved Code(s): R55 - SYNCOPE AND COLLAPSE Assessment/Plan see problem list
--- NOTE | 2017-11-22 12:34 | PN ---
Progress Note (short form) - Note Progress Note: Patient seen at bedside this morning and doing well. Her spouse was present. She reports doing well. Denies pain or discomfort. She has been out of bed to chair and sometimes to the bathroom. She is awaiting discharge to rehab this morning. Her surgical wound is healing well without any noted complications. No erythema, pain, exudate or odor. Patient and spouse was made aware that janes can be removed week of November 27. If she has been admitted in a rehab facilty , the treating physician should coordinate care with our office for removal, otherwise, she can be seen in the office for removal by Dr. Stauffer or GANESH Bernal. Surgical wound redressed by [facility]ER and covered with dry sterile dressing.
[2017-11-22 15:08] VITALS: BP 128/84; PULSE 92; TEMP 98
--- NOTE | 2017-11-22 16:30 | PN ---
Progress Note (short form) - Note Progress Note: Renal follow up for ESRD on HD Pt seen and examined at the bedside awake and alert no complaints no ROBIN at this time Vital Signs Temperature 98.0 F 11/22/17 14:43 Pulse Rate 92 H 11/22/17 14:43 Respiratory Rate 18 11/22/17 14:43 Blood Pressure 128/84 11/22/17 14:43 O2 Sat by Pulse Oximetry (%) 96 11/22/17 09:00 Intake & Output 11/19/17 11/20/17 11/21/17 11/22/17 23:59 23:59 23:59 23:59 Intake Total 700 950 200 Balance 700 950 200 Weight 65.408 kg 68.13 kg NAD, clean dressing on head RRR CTA no LE edema CBC, BMP 11/21/17 10:30 11/21/17 10:30 Current Medications Acetaminophen (Tylenol -) 650 mg PO Q4H PRN PRN Reason: PAIN LEVEL 4 - 6 Last Admin: 11/21/17 18:57 Dose: 650 mg Acetaminophen (Tylenol -) 650 mg PO Q6H PRN PRN Reason: FEVER >99.5 Acetaminophen/Butalbital/Caffeine (Fioricet -) 1 tablet PO TuThSa PRN PRN Reason: HEADACHE Last Admin: 11/21/17 11:01 Dose: 1 tablet Nifedipine (Procardia Xl -) 30 mg PO DAILY ILEANA Last Admin: 11/22/17 09:39 Dose: 30 mg 57 year old woman with PMhx of ESRD on HD (TTS), Hypertension who presented with progressively worsening ROBIN and found to have a meningioma with mass effect. #Meningioma s/p resection Neurosuergery following on Fioricet for ROBIN's #ESRD on HD no acute indication for dialysis today next treatment planned for tomorrow #Hypertension BP at goal on Nifedpine #CKD Anemia/Post surgical Anemia will continue MORENO with HD Saurabh Lay DO
[2017-11-23] MEDS ORDERED: EPOETIN ALFA 10,000 UNIT/1 ML VIAL IVPUSH ONE ×2 (06:00)
== END 2017-11-22 18:50 | DRG 25 ==
LOC: JER 09:25 → JERBED 16:46 → JICU 11-08 19:40 → J8W 11-09 20:32 → UNDODISIN 11-22 17:41
PROVIDERS: ADMIT Family Medicine; ATTEND Family Medicine
PROC: 005 Central Nervous System and Cranial Nerves, Destruction (ICD-10-PCS; principal; 2017-11-07)
PROC: 0W310ZZ Control Bleeding in Cranial Cavity, Open Approach (ICD-10-PCS; 2017-11-07)
PROC: 30233N1 Transfusion of Nonautologous Red Blood Cells into Peripheral Vein, Percutaneous Approach (ICD-10-PCS; 2017-11-16)
PROC: 5A1D90Z Performance of Urinary Filtration, Continuous, Greater than 18 hours Per Day (ICD-10-PCS; 2017-11-21)
DX: D32.0 Benign neoplasm of cerebral meninges (principal); N18.6 End stage renal disease; I12.0 Hypertensive chronic kidney disease with stage 5 chronic kidney disease or end stage renal disease; Z99.2 Dependence on renal dialysis; R55 Syncope and collapse; D63.1 Anemia in chronic kidney disease; N25.0 Renal osteodystrophy; E87.5 Hyperkalemia
CPT/HCPCS: 36415; 36430; 70450-TC; 70544-TC; 70551-TC; 71045-TC; 80048; 80053; 82550; 82565; 82962; 83735; 84100; 84484; 84520; 85025; 85027; 85610; 86704; 86706; 86708; 86803; 86850; 86900; 86901; 86922; 87040; 87340; 88307-TC; 88331-TC; 93005; 93010; 94010; 94760; 95816; 97116-GP; 97161-GP; 99285-25; J0885; J1644; P9038; P9058